=== PATIENT | male | born 1955 | race Caucasian/White ===

== ENCOUNTER 2018-07-22 17:45 | Inpatient (IN) | payer MEDICAID ==
[~2018-07-22] VITALS: Ht 182.9 cm; Wt 64.6 kg
--- NOTE | 2018-07-22 18:07 | NUR ---
PT INITIALLY CAME IN ON RA SATS 89-90 %. PLACED ON 2 L PNC AND IMMED IMPROVED TO 95 %
[2018-07-22 18:08] VITALS: BP 101/59
[2018-07-22 19:17] VITALS: BP 101/59
--- NOTE | 2018-07-22 19:47 | NUR ---
CONSENT FORMS SIGNED, PATIENT SIGNED THE FORMS WITH AN "X"
[2018-07-22 22:40] VITALS: BP 114/71
[2018-07-22 23:00] VITALS: BP 109/76
[2018-07-22 23:03] VITALS: BP 127/83; BMI 16.9
[2018-07-22 23:30] VITALS: BP 108/60
[2018-07-22 23:39] LABS: BASOPHILS 0 % (0-2); EOSINOPHILS 0.6 % (0-7); HEMATOCRIT 36.6 % (42.0-54.0); HEMOGLOBIN 12.5 g/dL (13.5-17.5); LYMPHOCYTES 11.2 % (15-50); MCH 30.2 pg (26.0-34.0); MCHC 34.2 g/dL (31.0-37.0); MCV 88.4 fL (80.0-100.0); MEAN PLATELET VOLUME 9.1 fL (7.4-10.4); MONOCYTES 4.3 % (2-11); NEUTROPHILS 82.9 % (40-80); PLATELET COUNT 211 10x3/uL (130-400); RBC 4.14 10x6/uL (4.20-6.10); RDW 15.7 % (11.5-14.5); WBC 8.7 10x3/uL (4.8-10.8)
[2018-07-23] VITALS (36 sets, daily range): BP systolic 68–122; BP diastolic 49–80; Ht 182.9 cm; Wt 64.6 kg
--- NOTE | 2018-07-23 00:32 | NUR ---
PT RECEIVED TO UNIT FOR SURGERY ON ICU BED FROM SURGERY WITH SURGERY STAFF. PT AWAKE WITH CONFUSION NOTED. PLACED ON MONITORS AND VSS. PADS CHANGED DUE TO BLEEDING. BLEEDING NOTED TO DRESSING TO SCROTUM. PT WITH BRIEF ON FOR SUPPORT PT ASSESSMENT COMPLETED, PT CONFUSED AND FALLING ASLEEP AND UNABLE TO OBTAIN HISTORY AT THIS TIME. MEDICATIONS GIVEN PER ORDERS. BRIAR CUTTER SETUP. WILL CONTINUE TO OBSERVE.
--- NOTE | 2018-07-23 02:23 | NUR ---
DRESSING TO SCROTOM REINFORCED DUE TO SATURATION. PT TOLERATED REPOSITIONING. VSS, PT RESTING WITH EYES CLOSED. NO S/S OF DISTRESS. WILL CONTINUE TO OBSERVE.
[2018-07-23 03:16] LABS: HEMATOCRIT 31.8 % (42.0-54.0); HEMOGLOBIN 10.9 g/dL (13.5-17.5); MCH 30.1 pg (26.0-34.0); MCHC 34.3 g/dL (31.0-37.0); MCV 87.8 fL (80.0-100.0); MEAN PLATELET VOLUME 9.3 fL (7.4-10.4); PLATELET COUNT 210 10x3/uL (130-400); RBC 3.62 10x6/uL (4.20-6.10); RDW 15.8 % (11.5-14.5); WBC 10.4 10x3/uL (4.8-10.8)
[2018-07-23 03:32] LABS: ALBUMIN 1.7 g/dL (3.4-5.0); ALKALINE PHOSPHATASE 58 U/L (46-116); BILIRUBIN - TOTAL 0.42 mg/dL (0.2-1.3); CALC OSMOLALITY 276 mosm/kg (275-300); CALCIUM 7.4 mg/dL (8.5-10.1); CARBON DIOXIDE 25.4 mmol/L (21.0-32.0); CHLORIDE - SERUM 107 mmol/L (98-107); CREATININE - SERUM 0.4 mg/dL (0.6-1.3); GLUCOSE 92 mg/dL (74-106); MAGNESIUM - SERUM 1.7 mg/dL (1.8-2.4); PHOSPHOROUS 3.8 mg/dL (2.5-4.9); POTASSIUM - SERUM 4.3 mmol/L (3.5-5.1); PROTEIN - SERUM 5.6 g/dL (6.4-8.2); SODIUM 139 mmol/L (136-145); UREA NITROGEN 10 mg/dL (7-18); eGFR NON AFRICAN AMERICAN > 90 mL/min (90-120)
[2018-07-23 03:33] LABS: ALT (SGPT) 4 U/L (10-68); TROPONIN-I < 0.017 ng/mL (0.000-0.060)
[2018-07-23 03:55] LABS: BASOPHILS 1 % (0-2); LYMPHOCYTES 3 % (15-50); MONOCYTES 4 % (2-11); NEUTROPHILS 87 % (40-80); PLATELET ESTIMATE NORMAL
--- NOTE | 2018-07-23 05:20 | NUR ---
PT WITH EYES CLOSED AND CHEST RISING. NO S/S OF DISTRESS. VSS. WILL CONTINUE TO OBSERVE.
--- NOTE | 2018-07-23 06:55 | NUR ---
DR RILEY CALLED TO REPORT DECREASING B/P. WILL REPORT.
--- NOTE | 2018-07-23 08:02 | OP ---
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 PROCEDURES: Debridement of gangrenous tissue including scrotectomy, right orchiectomy with removal of the right spermatic cord, placement of the left testicle in the thigh pocket, incision and drainage of right ischiorectal fossa abscess. FINDINGS: Completely necrotic scrotal skin with necrotic right testicle exposed. Pus seen along the right spermatic cord up to the external inguinal ring. Necrosis encompasses the median rhaphe of the scrotum. Necrosis tracts continuously down to the right ischiorectal fossa where there was necrotic fat and pus. SPECIMENS: Tissue containing the scrotal skin, right testicle and cord, ischiorectal fossa fat. BLOOD LOSS: Difficult to estimate. CLINICAL HISTORY: This is a 62-year-old male with severe rheumatoid arthritis. He has had this problem since 2008. He is on multiple immunosuppressive medications. At least 5 days ago, he started having a lot of pain in the scrotal area. He did not seek medical attention until today when he went to his family physician. The family physician found necrotic tissue in the scrotum and the patient was immediately referred to the local Emergency Room which is in [place]. [place] has transferred him here for management of Rachel's gangrene of the scrotum. On examining the scrotum, there is a black moist weepy area which we thought was scrotal skin. The patient is aware that since the erythema and crepitation tracks up along the right inguinal canal that he may lose the right testicle. Also, his CT done in [place] shows pus in the ischiorectal fossa on the right side. We are going to proceed with extensive debridement with evolved necrotic tissue. He was given vancomycin in [place]. We gave him meropenem in the Emergency Room here. In the OR, we gave him Flagyl 500 mg IV. DESCRIPTION OF PROCEDURE: The patient was given induction of general anesthesia. He was placed in the dorsal lithotomy position. He was then prepped and draped. We prepped the entire abdomen in case we had to do an exploratory laparotomy encasing Rachel's gangrene went into the pelvis. Also, the medial thighs were all prepped. A Hdez catheter was placed into the bladder and the balloon was inflated with 10 cc of sterile water and this was put to bag drainage. We started with excision of the scrotal skin around the necrotic area. We discovered that the scrotal skin have largely disappeared already. What we were excising was just the margin of a large central defect. What was exposed is weepy black tissue was actually the right testicle. By putting an Allis on the testicle and following the cord, we exposed pus along the canal. Wound culture swabs were obtained here. We incised the inguinal OPERATIVE REPORT [id number] CHRISTI JOY canal along the path of the cord. We traced the cord all the way up to the external inguinal ring. The cord here seemed viable. The cord was ligated using 2-0 Prolene tie and then cut distal to the tie. This was sent to pathology as part of the specimen. All necrotic skin along here was also removed. Any arterial and venous bleeding that significant was cauterized along the tissue edges. Going back into the scrotum, the left testicle was exposed and it was found to be completely viable and normal. The hemiscrotal tissue was necrotic and this was removed. Finally, going down into the ischiorectal fossa, we found that the whole infection site was contiguous with each other. The necrotic fat from the ischiorectal fossa was removed using the Bovie. Pus was found in this area. Culture swabs from the ischiorectal fossa were also obtained. Finally once we had completely debrided down to viable tissue, we irrigated the wound with saline peroxide solution. Kerlix infiltrated with normal saline was used for packing the wound. The patient will be brought to the intensive care unit for monitoring. Dr. Marrero plans to bring him back in 2 days' time for a second look exploration. TRANSINT:[id number] Voice Confirmation ID: [id number] DOCUMENT ID: [id number] VERÓNICA RILEY MD at 0802 CC: [id number] DICTATION DATE: 07/22/182204 PLANT ENGINEERING MANAGER: 07/23/18 0409 ADM IN [facility] [address] [facility], [facility]
--- NOTE | 2018-07-23 08:08 | NUR ---
PT UP IN BED AT THIS TIME AWAKE, SBP TRENDING IN 80S. NOTED UPON ASSESSMENT DRESSINGS SATURATED WITH BLOOD, SOME CLOTS NOTED. ALSO NOTED LINENS BENEATH PT SATURATED WITH BLOOD. PHYSICIAN PAGED AROUND 0700, H&H RECHECK ORDERED SINCE LAST CHECK WAS AT 0300. WILL PAGE PHYSICIAN AGAIN SHORTLY. PT DENIES ANY NEEDS. DENIES ANY NEEDS. HAS CHARGE COORDINATOR BUT HAS NOT BEEN USING IT. WILL CONTINUE TO CLOSELY OBSERVE.
[2018-07-23 08:26] LABS: HEMATOCRIT 26.6 % (42.0-54.0); HEMOGLOBIN 8.9 g/dL (13.5-17.5)
--- NOTE | 2018-07-23 08:43 | NUR ---
SPOKE WITH DR FLORES REGARDING H&H DROP TO 8.9/29.3 FROM 10.9/31.8. ORDERS RECIEVED FOR 2 U PRBC, 1 L NS, AND CONSULT DR MULLINS FOR CRITICAL CARE MANAGEMENT.
--- NOTE | 2018-07-23 09:20 | NUR ---
SBP TRENDING IN 70S NOW, SPOKE WITH DR MULLINS, HE STATED TO INCREASE NS TO 150ML/HR, GET LACTIC LEVEL, ABG, CHEST XRAY, AND EKG.
--- NOTE | 2018-07-23 10:15 | NUR ---
PICC LINE NURSE IN ROOM AT BEDSIDE PLACING PICC. NO ACUTE DISTRESS NOTED. WILL CONTINUE PLAN OF CARE.
--- NOTE | 2018-07-23 12:23 | NUR ---
LINENS NOTED SATURATED WITH BLOOD FROM INCISIONAL SITE. TOTAL LINEN CHANGE PROVIDED, DRESSINGS REINFORCED WITH ABD PADS AND 4X4S. BLOOD IS DARK RED WITH LOTS OF CLOTS. DR FLORES IS AWARE OF THIS AND DRESSINGS REINFORCED PER HIS ORDERS TO ONLY REINFORCE DRESSINGS FOR NOW. VSS. PT DENIES ANY DISCOMFORTS OR NEEDS. WILL CONTINUE PLAN OF CARE.
--- NOTE | 2018-07-23 14:15 | NUR ---
DR RILEY ROUNDED ON PT, STATED SINCE PT IS GOING BACK TO SURGERY TOMORROW, WOUND CARE CAN WAIT TO SEE PT UNTIL AFTER TOMORROWS PROCEDURE. PHYSICIAN ALSO CALLED DR FLORES AND UPDATED REGARDING BLEEDING FROM INCISIONAL SITES. NO NEW ORDERS NOTED. PT RECIEVING 2ND UNIT OF PRBC, WILL RECHECK H&H AFTER COMPLETION OF BLOOD ADMIN PER ORDERS. WILL CONTINUE PLAN OF CARE.
--- NOTE | 2018-07-23 15:06 | NUR ---
DR OTT HAS SEEN PT. ORDER RECIEVED TO PLACE PT ON CONTACT PRECAUTIONS FOR GANGRENE AND HISTORY OF CYSTS/BOILS.
--- NOTE | 2018-07-23 15:45 | NUR ---
PER SURGERY, PT TO GO BACK TO OR TOMORROW. PT STATUS UPDATE PROVIDED, LINENS SOILED WITH BLOOD FROM INCISIONAL SITE SHOWEN WELL. WILL CONTINUE PLAN OF CARE.
[2018-07-23 16:15] LABS: APTT 50.5 SECONDS (22.8-39.4); INR 3.87 (0.85-1.17); PROTIME 37.2 SECONDS (11.6-15.0)
--- NOTE | 2018-07-23 17:25 | NUR ---
LINENS COMPLETLY SATURATED WITH BLOOD AND CLOTS. TOTAL LINEN CHANGE PROVIDED, DRESSINGS REINFORCED PER ORDERS. DR FLORES NOTIFIED BY CHARGE NURSE, DR FLORES STATED HE WOULD CALL BACK IN A LITTLE BIT. PT DENIES ANY NEEDS. VSS. WILL CONTINUE PLAN OF CARE.
--- NOTE | 2018-07-23 19:05 | NUR ---
NOTED DOPPLER IS NEGATIVE TO LEGS, SCDS PLACED PER PHYSICIAN ORDERS.
[2018-07-23 19:17] LABS: BASOPHILS 0 % (0-2); EOSINOPHILS 0 % (0-7); IMMATURE GRANULOCYTES 0.8 % (0-5); LYMPHOCYTES 6.5 % (15-50); MCH 29.7 pg (26.0-34.0); MCHC 34.2 g/dL (31.0-37.0); MCV 86.9 fL (80.0-100.0); NEUTROPHILS 87.7 % (40-80); RDW 15.5 % (11.5-14.5)
[2018-07-23 19:26] LABS: HEMATOCRIT 19.3 % (42.0-54.0); HEMOGLOBIN 6.6 g/dL (13.5-17.5); PLATELET COUNT 134 10x3/uL (130-400); RBC 2.22 10x6/uL (4.20-6.10); WBC 7.4 10x3/uL (4.8-10.8)
--- NOTE | 2018-07-23 19:27 | NUR ---
H&H CRITICALLY LOW AT 6.6/19.3. DR FLORES PAGED FOR FURTHER ORDERS.
--- NOTE | 2018-07-23 19:33 | NUR ---
SPOKE WITH DR FLORES REGARDING CRITICALLY LOW H&H, ORDERS RECIEVED FOR 2 PRBC, 1 FFP, 1 PLATLET APHERESIS, 1 GRAM TXA, 1 AMP CALCIUM GLUCONATE, 15MG VITAMIN K SUBQ, THEN RECHECK CBC STAT POST TRANSFUSION AND CALL WITH RESULTS.
--- NOTE | 2018-07-23 19:35 | NUR ---
PT RECEIVED WITH EYES OPEN. ALERT. PLATLETS STARTED. BLEEDING NOTED TO PADDING. WILL CONTINUE TO OBSERVE.
--- NOTE | 2018-07-23 21:16 | NUR ---
CALCIUM GLUCONATE AND TXA ADMINISTERING. PLASMA COMPLETED AND 1ST UNIT OF PRBC INFUSING AFTER VERIFICATION WITH ANOTHER NURSE AND TUBING CHANGE. PT TOLERATING WELL. PT WITH PLEASANT DEMEANOR WITH SOME CONFUSION NOTED. WILL CONTINUE TO OBSERVE.
--- NOTE | 2018-07-23 22:09 | NUR ---
DR FLORES CALLED TO CHECK ON PT. REPORT GIVEN. STATED TO CALL IF HEMATOCRIT LESS THAN 28. WILL CONTINUE TO OBSERVE.
--- NOTE | 2018-07-23 23:44 | NUR ---
2ND UNIT PRBC STARTED AFTER VERIFICATION WITH ANOTHER NURSE. PT TOLERATED WELL. JADEN CONTINUE TO OBSERVE. REASSESSMENT COMPLETED, SEE FLOW SHEET.
[2018-07-24] VITALS (69 sets, daily range): BP systolic 66–136; BP diastolic 25–82
--- NOTE | 2018-07-24 01:44 | NUR ---
PRBC COMPLETED. LINENS CHANGED DUE TO BLEEDING FROM SCROTUM/SURGERY SITE. DRESSING REINFORCED WITH GAUZE. WILL CONTINUE TO OBSERVE.
--- NOTE | 2018-07-24 03:16 | NUR ---
PT IN BED WITH EYES OPEN WATCHING TV. REASSESSMENT COMPLETED. SEE FLOW SHEET. WILL CONTINUE TO OBSERVE.
[2018-07-24 03:49] LABS: BASOPHILS 0 % (0-2); EOSINOPHILS 0 % (0-7); IMMATURE GRANULOCYTES 1.2 % (0-5); LYMPHOCYTES 8.9 % (15-50); MCH 29.2 pg (26.0-34.0); MCHC 34.6 g/dL (31.0-37.0); MEAN PLATELET VOLUME 9.6 fL (7.4-10.4); MONOCYTES 5.6 % (2-11); NEUTROPHILS 84.3 % (40-80); RDW 14.8 % (11.5-14.5); WBC 8.5 10x3/uL (4.8-10.8)
[2018-07-24 03:52] LABS: MCV 84.3 fL (80.0-100.0); PLATELET COUNT 175 10x3/uL (130-400)
[2018-07-24 03:53] LABS: HEMATOCRIT 15.6 % (42.0-54.0); HEMOGLOBIN 5.4 g/dL (13.5-17.5); RBC 1.85 10x6/uL (4.20-6.10)
--- NOTE | 2018-07-24 04:38 | NUR ---
DR FLORES PAGED AND RETURNED CALL. REPORTED H&H 5.4/15.6 RBC 1.85. ORDERS RECEIVED FOR 4 UNITS OF PRBC, 2 UNITS FFP, 2 UNITS OF PLATELETS. ADIMINISTRATION HAS BEGUN PT TOLERATING WELL. WILL CONTINUE TO OBSERVE.
[2018-07-24 05:12] LABS: ALBUMIN 1.3 g/dL (3.4-5.0); ALKALINE PHOSPHATASE 33 U/L (46-116); BILIRUBIN - TOTAL 0.32 mg/dL (0.2-1.3); CARBON DIOXIDE 26.1 mmol/L (21.0-32.0); CHLORIDE - SERUM 110 mmol/L (98-107); CREATININE - SERUM 0.4 mg/dL (0.6-1.3); MAGNESIUM - SERUM 1.7 mg/dL (1.8-2.4); SODIUM 138 mmol/L (136-145); eGFR NON AFRICAN AMERICAN > 90 mL/min (90-120)
[2018-07-24 05:16] LABS: ALT (SGPT) 13 U/L (10-68); CALC OSMOLALITY 279 mosm/kg (275-300); GLUCOSE 147 mg/dL (74-106); PHOSPHOROUS 1.9 mg/dL (2.5-4.9); PROTEIN - SERUM 3.4 g/dL (6.4-8.2); UREA NITROGEN 14 mg/dL (7-18)
--- NOTE | 2018-07-24 05:32 | NUR ---
PT RECEIVED UNITS 1&2 PRBC. TOLERATING WELL. WILL CONTINUE TO OBSERVE
[2018-07-24 06:52] LABS: APTT 39.9 SECONDS (22.8-39.4); INR 1.83 (0.85-1.17); PROTIME 20.5 SECONDS (11.6-15.0)
--- NOTE | 2018-07-24 07:00 | NUR ---
SHIFT ASSESSMENT COMPLETED, PT CARE ASSUMED. MONITORS ON AND WORKING, DRESSING AND BEDDING SATURATED IN BLOOD DESPITE RECENT LINEN CHANGE AND BANDAGE REINFORCED FROM RECENT SURGICAL PROCEDURE, MD AWARE PT SCHEDULED TO GO BACK TO OR THIS AM, PT AWAKE AND ALERT, CALL LIGHT WITHIN REACH, WILL CONTINUE TO OBSERVE.
--- NOTE | 2018-07-24 07:23 | NUR ---
4TH UNIT PRBC INFUSING. 2 UNITS OF FFP GIVEN. REPORT GIVEN.
--- NOTE | 2018-07-24 10:23 | NUR ---
REC'D PT BACK FROM OR. PT HOOKED UP TO MONITORS, DRESSING CDI, PT AWAKE AND RESPONDING, WILL CONTINUE TO OBSERVE.
--- NOTE | 2018-07-24 10:31 | OP ---
PATIENT NAME: CHRISTI JOY MEDICAL RECORD: [id number] :59 LOCATION:.[facility] D.2310 ADMISSION DATE:07/22/18 SURGEON: VERÓNICA FLORES MD DATE OF OPERATION: 07/22/2018 This patient was transferred from [place]. PREOPERATIVE DIAGNOSIS: Rachel's gangrene. POSTOPERATIVE DIAGNOSES: Rachel's gangrene with nonviable right testicle and gangrene involving essentially the entire scrotum as well as the right ischiorectal fossa. This is a cosurgeon case Dr. Verónica Flores and Dr. Verónica Riley. Dr. Verónica Riley is the urologist, I am the general surgeon. PROCEDURE IN DETAIL: Please see the detailed description of procedure in Dr. Riley's operative note. Due to the complexity of the procedure, it was necessary to have 2 attending surgeons to perform the procedure. The patient was conveyed to the operating room emergently on 07/22/2018. As soon as were told the patient had a Rachel's gangrene, we mobilized the operative crew and had him conveyed to the operating room. After sterile prep and drape, I examined the scrotum and the right testicle and cord structures were gangrenous. We ligated the cord structures highly and then transected them distal to this. The scrotum was excised back to bleeding viable tissue. The ischiorectal fossa was found to contain a good bit of purulence as well as necrotic adipose tissue, etc. and this was excised in a piecemeal fashion. The penis appeared to be viable. The left testicle was placed in a bi-pocket, which was fashioned by Dr. Riley. Cultures were obtained. We did not demonstrate any definite intraabdominal spread of the gangrene. It appeared to cause some separation of tissues between the bladder and the anterior pelvis. I did not really notice any purulence in this area; however. The excision was a piecemeal excision, it was quite extensive. It was difficult to measure the excised defect; however, my best estimate is that the anterior-posterior dimension is 20.5 cm and the medial-lateral dimension is 17.3 cm, however, of course this changes if the patient has has thighs abducted or not. The wound was irrigated with hydrogen peroxide. Hemostasis was achieved with electrocautery. This was a sharp debridement back to viable bleeding tissue. We then packed the wound with Kerlix that had been soaked in saline. We will plan for a second look procedure probably in about 48 hours. TRANSINT:[id number] Voice Confirmation ID: [id number] DOCUMENT ID: [id number] VERÓNICA FLORES MD at 1031 CC: JEFFY PINEDA and VERÓNICA RILEY MD [id number] DICTATION DATE: 07/22/182215 COOLER SUPERVISOR: 07/23/18 0638 ADM IN [facility] [address] [place] [id number]
--- NOTE | 2018-07-24 11:00 | NUR ---
PT TURNED AND REPOSITIONED FOR COMFORT, NO BLEEDING NOTED. CALL LIGHT WITHIN REACH, MONITORS ON AND WORKING, WILL CONTINUE TO OBSERVE.
[2018-07-24 11:47] LABS: HEMATOCRIT 24.3 % (42.0-54.0); HEMOGLOBIN 8.4 g/dL (13.5-17.5)
--- NOTE | 2018-07-24 13:00 | NUR ---
PT AWAKE AND ALERT, MONITORS ON AND WORKING CALL LIGHT WITHIN REACH, WILL CONTINUE TO OBSERVE.
--- NOTE | 2018-07-24 15:00 | NUR ---
PT BP IMPROVING ALONG WITH SKIN COLOR, NO SIGNS/SYMPTOMS OF PAIN OR DISTRESS NOTED AT THIS TIME, PT AWAKE AND ALERT. MONITORS ON AND WORKING, VITALS STABLE, SEE FLOW SHEET FOR FURTHER DETAILS, WILL CONTINUE TO OBSERVE.
--- NOTE | 2018-07-24 16:06 | OP ---
PATIENT NAME: CHRISTI JOY MEDICAL RECORD: [id number] :59 LOCATION:D.[facility] D.2310 ADMISSION DATE:07/22/18 SURGEON: ISMAEL FLORES MD DATE OF OPERATION: 07/24/2018 PREOPERATIVE DIAGNOSES: 1. Hemorrhagic shock. 2. Blood loss anemia requiring transfusions. 3. Rachel's gangrene. POSTOPERATIVE DIAGNOSES: 1. Hemorrhagic shock. 2. Blood loss anemia requiring transfusions. 3. Rachel's gangrene. 4. One arterial bleeding area as well as diffuse oozing from the debrided bed. 5. Some additional necrotic tissue was identified. PROCEDURE: 1. Excisional debridement of perineum. The anterior and posterior dimension was 21.0 cm. The medial and lateral dimension was 10.0 cm, although this is difficult to characterize and depends on the positioning of the patient. This was a sharp debridement back to healthy viable tissue. 2. Control of arterial hemorrhage. SURGEON: Ismael Flores MD MEDICAL CODING TECHNICIAN: None. BLOOD LOSS: New blood loss is 100 cc. ANESTHESIA: General. COMPLICATIONS: None. The risks, possible complications and alternatives to the procedure were explained to the patient. He elects to proceed. Discussion specifically included, but was not limited to, the possible need for an exploratory laparotomy and possible need for a penectomy, the possible need for a left orchiectomy. OPERATIVE COURSE: The patient was conveyed the operating room electively on 07/24/2018. General anesthesia was induced by the anesthesia staff. The patient was placed in the lithotomy position. The lower abdomen and perineum were sterilely prepped. The left testicle had pretty much fallen out of the thigh pocket. I took some of the left thigh skin and sutured to the medial aspect of the debrided penis with 3-0 Vicryls, covering the testicle completely. Testicle continued to appear to be viable. I then performed excisional debridement. The debrided tissues included necrotic fat and necrotic fascia, a portion of the outer tissue covering the penis as well as a left groin. The debridement was carried out with a scalpel as well as with the Harmonic scalpel. Bleeding was controlled with a horizontal mattress 3-0 Vicryl and this was bleeding from the left buttock skin margin. I then controlled some additional bleeding utilizing the handheld argon plasma resource recovery specialist. OPERATIVE REPORT [id number] CHRISTI JOY A sterile dressing was applied. The patient was then extubated and conveyed to the post-anesthesia care unit. TRANSINT:[id number] Voice Confirmation ID: [id number] DOCUMENT ID: [id number] ISMAEL FLORES MD at 1606 CC: [id number] DICTATION DATE: 07/24/18 1026 HAND FUR CLEANER: 07/24/18 1247 ADM IN [place] [id number] [place] [id number]
--- NOTE | 2018-07-24 17:00 | NUR ---
PT SITTING UP IN BED EATING DINNER, OFF OF LEVOPHED, NO BLEEDING NOTED, HR AND BP STABLE. CALL LIGHT WITHIN REACH, WILL CONTINUE TO OBSERVE.
--- NOTE | 2018-07-24 19:00 | NUR ---
REPORT RECEIVED, CARE ASSUMED. PT IS SITTING IN BED WITH EYES OPEN AT THIS TIME. INITIAL ASSESSMENT COMPLETED, SEE FLOWSHEET FOR DETAILS. PT VOICES NO NEEDS AT THIS TIME. PT CONTINUES TO MAINTAIN BP AND HR. NO BLEEDING NOTED AT THIS TIME. WILL CONTINUE TO MONITOR.
--- NOTE | 2018-07-24 19:00 | MORECARE ---
CASE MANAGEMENT DISCHARGE SUMMARY PATIENT: CHRISTI JOY UNIT: [id number] ADM DATE: 07/22/18 AGE: 62 : 59 SEX: M ROOM/BED: D.2310 AUTHOR: OKSANA HI PHYSICIAN: REFERRING PHYSICIAN: ROSHNI PINEDA MD DATE OF SERVICE: 07/24/18 Discharge Plan Patient Name: CHRISTI JOY Facility: [facility]:[place] : 1955 Planned Disposition: Anticipated Discharge Date: Discharge Date: Expected LOS: Initial Reviewer: [email or web address] Initial Review Date: 07/22/2018 Generated: 07/24/18 7:59 pm Patient Name: CHRISTI JOY Page [id number] at 1900 All edits/amendments must be made on the electronic document DICTATION DATE: 07/24/181858 FLIGHT MECHANIC: MELISSA 07/24/181858 RPT#: [id number] DC DATE: STATUS: ADM IN [facility] [address] [place] [address] END OF REPORT
--- NOTE | 2018-07-24 19:06 | MORECARE ---
CASE MANAGEMENT DISCHARGE SUMMARY PATIENT: CHRISTI JOY UNIT: [id number] ADM DATE: 07/22/18 AGE: 62 : 59 SEX: M ROOM/BED: D.2310 AUTHOR: OKSANA HI PHYSICIAN: REFERRING PHYSICIAN: ROSHNI PINEDA MD DATE OF SERVICE: 07/24/18 Discharge Plan Patient Name: CHRISTI JOY [facility] : 1955 Planned Disposition: Anticipated Discharge Date: Discharge Date: Expected LOS: Initial Reviewer: [email or web address] Initial Review Date: 07/22/2018 Generated: 07/24/18 8:06 pm DCPIA - Discharge Planning Initial Assessment Updated by [email or web address]: Denise Saldivar on 07/24/18 7:01 pm * Is the patient Alert and Oriented? Yes * How many steps to enter\exit or inside your home? * PCP DR. Sapna YUAN * Pharmacy [facility] * Preadmission Environment Home Alone * ADLs Independent * Equipment None * List name and contact numbers for known caregivers / representatives who currently or will assist patient after discharge: HAS NO ONE PER PT * Verbal permission to speak to the caregivers and representatives has been obtained from the patient. N/A * Community resources currently utilized None * Additional services required to return to the preadmission environment? No * Can the patient safely return to the preadmission environment? Yes * Has this patient been hospitalized within the prior 30 days at any hospital? No Last DP export: 07/24/18 6:00 p Patient Name: CHRISTI JOY Page 92310 at 1906 All edits/amendments must be made on the electronic document DICTATION DATE: 07/24/181905 POWDER BLENDER AND POURER: MELISSA 07/24/181905 RPT#: [id number] DC DATE: STATUS: ADM IN [facility] [address] [place] [address] END OF REPORT
--- NOTE | 2018-07-24 19:19 | MORECARE ---
CASE MANAGEMENT DISCHARGE SUMMARY PATIENT: CHRISTI JOY UNIT: [id number] ADM DATE: 07/22/18 AGE: 62 : 59 SEX: M ROOM/BED: D.2310 AUTHOR: KOLTON,DOC PHYSICIAN: REFERRING PHYSICIAN: ROSHNI PINEDA MD DATE OF SERVICE: 07/24/18 Discharge Plan Patient Name: CHRISTI JOY Facility: [facility]:[place] : 1955 Planned Disposition: Anticipated Discharge Date: Discharge Date: Expected LOS: Initial Reviewer: [email or web address] Initial Review Date: 07/22/2018 Generated: 07/24/18 8:19 pm Comments DCP- Discharge Planning Updated by [email or web address]: Denise Saldivar on 07/24/18 6:[address] Patient Name: CHRISTI JOY Admission Status: ER Accout number: [id number] Admission Date: 07-22-2018 : 1955 Admission Diagnosis: Attending: JEFFY PINEDA Current LOS: 2 Anticipated DC Date: Planned Disposition: Primary Insurance: MEDICAID [place] PENDING CM met with patient at bedside about discharge planning /needs. Patient states he lives alone. Patient states he plans to discharge to his home. States he doesn't know how he is going to get home since his vehicle is at [facility]. He states he doesn't have anyone to help him. He states he has been trying for years to get his disability d/t his RA but hasn't received it and doesn't have any insurance. CM will contact [facility]. Patient states he doesn't have any medical equipment or home health services presently. States he feels his home environment is safe. Patient will most likely need HH when discharged for wound care. CM will continue to follow and assist as needed with discharge planning / needs. Discharge Planning Comments: Pairing Machine Operator: Denise Saldivar DCPIA - Discharge Planning Initial Assessment Updated by [email or web address]: Denise Saldivar on 07/24/18 7:01 pm * Is the patient Alert and Oriented? Yes * How many steps to enter\exit or inside your home? * PCP DR. Sapna YUAN * Pharmacy [facility] * Preadmission Environment Home Alone * ADLs Independent * Equipment None * List name and contact numbers for known caregivers / representatives who currently or will assist patient after discharge: HAS NO ONE PER PT * Verbal permission to speak to the caregivers and representatives has been obtained from the patient. N/A * Community resources currently utilized None * Additional services required to return to the preadmission environment? No * Can the patient safely return to the preadmission environment? Yes * Has this patient been hospitalized within the prior 30 days at any hospital? No Last DP export: 07/24/18 6:06 p Patient Name: CHRISTI JOY Page [phone] at 1919 All edits/amendments must be made on the electronic document DICTATION DATE: 07/24/181917 CHANNEL OPENER OUTSOLES: MELISSA 07/24/181917 RPT#: [id number] DC DATE: STATUS: ADM IN [facility] [address] [place] [address] END OF REPORT
--- NOTE | 2018-07-24 21:00 | NUR ---
PT IS RESTING IN BED WITH EYES CLOSED AT THIS TIME. PT'S GOWN, BLANKET AND LEADS WERE CHANGED. PT HELPED TO REPOSITION IN BED. NO SIGNS OF ACUTE DISTRESS NOTED AT THIS TIME. WILL CONTINUE TO MONITOR.
[2018-07-24 22:32] LABS: HEMATOCRIT 24.9 % (42.0-54.0); HEMOGLOBIN 8.8 g/dL (13.5-17.5)
--- NOTE | 2018-07-24 23:00 | NUR ---
REASSESSMENT COMPLETED, SEE FLOWSHEET FOR DETAILS. PT IS LAYING IN BED WITH EYES CLOSED. NO NEEDS VOICED. PT BP WAS LOW, LEVOPHED RESTARTED PER DRIP FLOWSHEET. NO SIGNS OF ACUTE DISTRESS NOTED AT THIS TIME. WILL CONTINUE TO MONITOR.
[2018-07-25] VITALS (54 sets, daily range): BP systolic 84–136; BP diastolic 52–99
--- NOTE | 2018-07-25 01:00 | NUR ---
PT IS RESTING IN BED WITH EYES CLOSED AT THIS TIME. NO SIGNS OF ACUTE DISTRESS. NO NEEDS VOICED AT THIS TIME. WILL CONTINUE TO MONITOR.
--- NOTE | 2018-07-25 03:00 | NUR ---
REASSESSMENT COMPLETED, SEE FLOWSHEET FOR DETAILS. PT IS RESTING IN BED WITH EYES CLOSED AT THIS TIME. NO SIGNS OF ACUTE DISTRESS NOTED. WILL CONTINUE TO MONITOR.
[2018-07-25] MEDS ORDERED: ENBREL25 MG/0.5 SQ (03:07)
[2018-07-25] MEDS ORDERED: ARAVA10 MG PO (03:08)
[2018-07-25] MEDS ORDERED: PREDNISONE5 MG PO (03:09)
[2018-07-25] MEDS ORDERED: AZULFIDINE500 MG PO (03:10)
[2018-07-25 03:44] LABS: BASOPHILS 0 % (0-2); EOSINOPHILS 0 % (0-7); HEMATOCRIT 25.1 % (42.0-54.0); HEMOGLOBIN 8.7 g/dL (13.5-17.5); LYMPHOCYTES 8.3 % (15-50); MCHC 34.7 g/dL (31.0-37.0); MCV 83.7 fL (80.0-100.0); MEAN PLATELET VOLUME 9.1 fL (7.4-10.4); MONOCYTES 4.8 % (2-11); NEUTROPHILS 85.9 % (40-80); PLATELET COUNT 201 10x3/uL (130-400); RDW 16.2 % (11.5-14.5); WBC 10.3 10x3/uL (4.8-10.8)
[2018-07-25 03:56] LABS: ALBUMIN 1.6 g/dL (3.4-5.0); ALKALINE PHOSPHATASE 40 U/L (46-116); APTT 30.2 SECONDS (22.8-39.4); BILIRUBIN - TOTAL 0.48 mg/dL (0.2-1.3); CARBON DIOXIDE 23.8 mmol/L (21.0-32.0); CHLORIDE - SERUM 110 mmol/L (98-107); CREATININE - SERUM 0.5 mg/dL (0.6-1.3); INR 1.24 (0.85-1.17); POTASSIUM - SERUM 3.9 mmol/L (3.5-5.1); PROTEIN - SERUM 3.9 g/dL (6.4-8.2); PROTIME 15.1 SECONDS (11.6-15.0); SODIUM 142 mmol/L (136-145); eGFR NON AFRICAN AMERICAN > 90 mL/min (90-120)
[2018-07-25 03:58] LABS: ALT (SGPT) 9 U/L (10-68); CALC OSMOLALITY 281 mosm/kg (275-300); CALCIUM 6.7 mg/dL (8.5-10.1); GLUCOSE 97 mg/dL (74-106); PHOSPHOROUS 1.3 mg/dL (2.5-4.9); UREA NITROGEN 10 mg/dL (7-18)
--- NOTE | 2018-07-25 05:00 | NUR ---
PT IS RESTING IN BED WITH EYES OPEN WATCHING TV AT THIS TIME. PT WAS GIVEN A COMPLETE CHG BATH AND LINEN CHANGE. PT HAD A CRITICAL CALCIUM OF 6.7, CORRECTED CALCIUM WAS 8.6. ELECTROLYTE PROTOCOL FOLLOWED FOR OTHER MORNING LAB VALUES. NO SIGNS OF ACUTE DISTRESS NOTED. WILL CONTINUE TO MONITOR.
--- NOTE | 2018-07-25 07:00 | NUR ---
SHIFT ASSESSMENT COMPLETED, PT CARE ASSUMED, MONITORS ON AND WORKING, VITALS STABLE, NO SIGNS/SYMPTOMS OF PAIN OR DISCOMFORT NOTED. PT AWAKE AND ALERT, SEE FLOW SHEET FOR FURTHER DETAILS, WILL CONTINUE TO OBSERVE.
--- NOTE | 2018-07-25 08:29 | NUR ---
Nutrition follow-up: Diet: Regular PO intake ~25-50% of meals Labs reviewed Wt: 142# +BM Levophed restarted Recommend starting ProcalAmine PPN @ 100 ml/hr along with po diet to provide pt with extra nutrition to aid with wound healing. RDN following.
--- NOTE | 2018-07-25 09:00 | NUR ---
PT SITTING UP IN BED, AWAKE AND ALERT, MONITORS ON AND WORKING, PT EATING BREAKFAST. NO SIGNS/SYMPTOMS OF PAIN OR DISCOMFORT NOTED AT THIS TIME. CALL LIGHT WITHIN REACH.
--- NOTE | 2018-07-25 11:00 | NUR ---
NO CHNAGES, SEE FLOW SHEET FOR FURTHER DETIALS. WILL CONTINUE TO OBSERVE.
--- NOTE | 2018-07-25 12:02 | MORECARE ---
CASE MANAGEMENT DISCHARGE SUMMARY PATIENT: CHRISTI JOY UNIT: [id number] ADM DATE: 07/22/18 AGE: 62 : 59 SEX: M ROOM/BED: D.2310 AUTHOR: KOLTON,DOC PHYSICIAN: REFERRING PHYSICIAN: ROSHNI PINEDA MD DATE OF SERVICE: 07/25/18 Discharge Plan Patient Name: CHRISTI JOY Facility: [facility]:[place] : 1955 Planned Disposition: Anticipated Discharge Date: Discharge Date: Expected LOS: Initial Reviewer: [email or web address] Initial Review Date: 07/22/2018 Generated: 07/25/18 1:02 pm Comments DCP- Discharge Planning Updated by [email or web address]: Denise Saldivar on 07/25/18 10:[address] SPOKE WITH [facility]G IN [place] -.HE HAS MEDICAID PENDING DCP- Discharge Planning Updated by [email or web address]: Denise Saldivar on 07/24/18 6:[address] Patient Name: CHRISTI JOY Admission Status: ER Accout number: [id number] Admission Date: 07-22-2018 : 1955 Admission Diagnosis: Attending: JEFFY PINEDA Current LOS: 2 Anticipated DC Date: Planned Disposition: Primary Insurance: MEDICAID [place] PENDING CM met with patient at bedside about discharge planning /needs. Patient states he lives alone. Patient states he plans to discharge to his home. States he doesn't know how he is going to get home since his vehicle is at [facility]. He states he doesn't have anyone to help him. He states he has been trying for years to get his disability d/t his RA but hasn't received it and doesn't have any insurance. CM will contact [employer]. Patient states he doesn't have any medical equipment or home health services presently. States he feels his home environment is safe. Patient will most likely need HH when discharged for wound care. CM will continue to follow and assist as needed with discharge planning / needs. Discharge Planning Comments: Housekeeping Coordinator: Denise Saldivar DCPIA - Discharge Planning Initial Assessment Updated by [email or web address]: Denise Saldivar on 07/24/18 7:01 pm * Is the patient Alert and Oriented? Yes * How many steps to enter\exit or inside your home? * PCP DR. Sapna YUAN * Pharmacy [facility] * Preadmission Environment Home Alone * ADLs Independent * Equipment None * List name and contact numbers for known caregivers / representatives who currently or will assist patient after discharge: HAS NO ONE PER PT * Verbal permission to speak to the caregivers and representatives has been obtained from the patient. N/A * Community resources currently utilized None * Additional services required to return to the preadmission environment? No * Can the patient safely return to the preadmission environment? Yes * Has this patient been hospitalized within the prior 30 days at any hospital? No Last DP export: 07/24/18 6:19 p Patient Name: CHRISTI JOY Page [id number] at 1202 All edits/amendments must be made on the electronic document DICTATION DATE: 07/25/181201 CUSTOMER SOLUTIONS ARCHITECT: MELISSA 07/25/18 1202 RPT#: [id number] DC DATE: STATUS: ADM IN [facility] [address] [place] [address] END OF REPORT
--- NOTE | 2018-07-25 13:00 | NUR ---
PT SITTING UP IN BED EATING LUNCH. MONITORS ON AND WORKING, VITALS STABLE. PT AWAKE AND ALERT, NO SIGNS/SYMPTOMS OF PAIN OR DISCOMFORT NOTED. WILL CONTINUE TO OSBERV.E
--- NOTE | 2018-07-25 15:00 | NUR ---
NO CHANGES, SEE FLOW SHEET FOR FURTHER DETIALS, MONITORS ON AND WORKING, CALL LIGHT WITHIN REACH, WILL CONTINUE TO OBSERVE.
--- NOTE | 2018-07-25 15:06 | NUR ---
Left plantar foot is dry and scaly with a healing wound that looks like a laceration. Pt states he gets cysts on his feet and on his buttocks that occasional rupture and this is what happened on his left foot. He says the cysts are related to his arthritis. There is no drainage, odor or redness noted. Recommend keeping clean, dry and open to air.
--- NOTE | 2018-07-25 19:30 | NUR ---
PT SITTING UP IN BED, NO SIGNS OF DISTRESS. PT CONFUSED TO PLACE, ASKING "WHAT KIND OF HOTEL IS THIS" EXPLAINED TO PT THIS WAS A HOSPITAL AND WHERE HE WAS AND WHY. PT AGITATED STATING WE ARE "BULLYING HIM" BECAUSE HE NEEDS TO GO GET HIS TRUCK FROM THE "HOTEL IN [place]." REDIRECTED PT. HE IS OFF AND ON PLEASANT AND THEN WILL GET AGITATED QUICKLY STATING HE NEEDS TO GO HOME TO HANDLE BILLS. IV RIGHT UPPER ARM INFUSING NS @ 50. DRESSING TO RIGHT GROIN AND SCROTUM AREA. DENIES PAIN. MCQUEEN DRAINING CLEAR YELLOW URINE. SAVANAH ON. SCDS ON. CL IN REACH, WILL CONT TO MONITOR
--- NOTE | 2018-07-25 22:00 | NUR ---
PT SAVANAH ALARMING, PT IN BATHROOM SITTING ON TOILET. STATED HE HAD TO HAVE BM. ASSISTED PT BACK TO BED WHEN DONE. PT ABLE TO WALK TO BED WITH MINIMAL ASSIST. GAIT SLIGHTLY UNSTEADY. DENIES PAIN. PT PULLED OFF DRESSING TO RIGHT GROIN WHILE IN BATHROOM. CHANGED DRESSING WET TO DRY. WITHOUT PAIN. SAVANAH ON. CL IN REACH, WILL CONT TO MONITOR
[2018-07-26] VITALS: BP 125/79
[2018-07-26 04:00] VITALS: BP 115/55
[2018-07-26 06:27] LABS: ALKALINE PHOSPHATASE 52 U/L (46-116); CALC OSMOLALITY 285 mosm/kg (275-300); CALCIUM 7.9 mg/dL (8.5-10.1); CARBON DIOXIDE 22.6 mmol/L (21.0-32.0); CHLORIDE - SERUM 113 mmol/L (98-107); CREATININE - SERUM 0.4 mg/dL (0.6-1.3); GLUCOSE 93 mg/dL (74-106); MAGNESIUM - SERUM 2.4 mg/dL (1.8-2.4); POTASSIUM - SERUM 3.8 mmol/L (3.5-5.1); PRO BNP 2058 pg/mL (0-125); SODIUM 144 mmol/L (136-145); UREA NITROGEN 10 mg/dL (7-18); eGFR NON AFRICAN AMERICAN > 90 mL/min (90-120)
[2018-07-26 06:28] LABS: ALBUMIN 2.9 g/dL (3.4-5.0); ALT (SGPT) 18 U/L (10-68); PHOSPHOROUS 1.9 mg/dL (2.5-4.9); PROTEIN - SERUM 5.2 g/dL (6.4-8.2)
[2018-07-26 08:00] LABS: BASOPHILS 0.1 % (0-2); EOSINOPHILS 0 % (0-7); HEMOGLOBIN 9.6 g/dL (13.5-17.5); IMMATURE GRANULOCYTES 5.5 % (0-5); MCH 29.4 pg (26.0-34.0); MCHC 34.3 g/dL (31.0-37.0); MEAN PLATELET VOLUME 9.1 fL (7.4-10.4); MONOCYTES 5.2 % (2-11); NEUTROPHILS 79.2 % (40-80); PLATELET COUNT 191 10x3/uL (130-400); RBC 3.26 10x6/uL (4.20-6.10); RDW 16.6 % (11.5-14.5); WBC 8.9 10x3/uL (4.8-10.8)
[2018-07-26 08:05] LABS: MCV 85.9 fL (80.0-100.0)
[2018-07-26 09:49] VITALS: BP 141/90
--- NOTE | 2018-07-26 14:15 | MORECARE ---
CASE MANAGEMENT DISCHARGE SUMMARY PATIENT: CHRISTI JOY UNIT: [id number] ADM DATE: 07/22/18 AGE: 62 : 59 SEX: M ROOM/BED: D.2234 AUTHOR: KOLTON,DOC PHYSICIAN: REFERRING PHYSICIAN: ROSHNI PINEAD MD DATE OF SERVICE: 07/26/18 Discharge Plan Patient Name: CHRISTI JOY Facility: [facility]:[place] : 1955 Planned Disposition: Anticipated Discharge Date: Discharge Date: Expected LOS: Initial Reviewer: [email or web address] Initial Review Date: 07/22/2018 Generated: 07/26/18 3:14 pm Comments DCP- Discharge Planning Updated by [email or web address]: Denise Saldivar on 07/25/18 10:[address] SPOKE WITH [facility] IN [employer] -.HE HAS MEDICAID PENDING DCP- Discharge Planning Updated by [email or web address]: Denise Saldivar on 07/24/18 6:[address] Patient Name: CHRISTI JOY Admission Status: ER Accout number: [id number] Admission Date: 07-22-2018 : 1955 Admission Diagnosis: Attending: JEFFY PINEDA Current LOS: 2 Anticipated DC Date: Planned Disposition: Primary Insurance: MEDICAID [place] PENDING CM met with patient at bedside about discharge planning /needs. Patient states he lives alone. Patient states he plans to discharge to his home. States he doesn't know how he is going to get home since his vehicle is at [facility]. He states he doesn't have anyone to help him. He states he has been trying for years to get his disability d/t his RA but hasn't received it and doesn't have any insurance. CM will contact [employer]. Patient states he doesn't have any medical equipment or home health services presently. States he feels his home environment is safe. Patient will most likely need HH when discharged for wound care. CM will continue to follow and assist as needed with discharge planning / needs. Discharge Planning Comments: Detail Sergeant: Denise Saldivar DCPIA - Discharge Planning Initial Assessment Updated by [email or web address]: Denise Saldivar on 07/24/18 7:01 pm * Is the patient Alert and Oriented? Yes * How many steps to enter\exit or inside your home? * PCP DR. Sapna YUAN * Pharmacy [facility] * Preadmission Environment Home Alone * ADLs Independent * Equipment None * List name and contact numbers for known caregivers / representatives who currently or will assist patient after discharge: HAS NO ONE PER PT * Verbal permission to speak to the caregivers and representatives has been obtained from the patient. N/A * Community resources currently utilized None * Additional services required to return to the preadmission environment? No * Can the patient safely return to the preadmission environment? Yes * Has this patient been hospitalized within the prior 30 days at any hospital? No External Providers [facility] Next Contact Date: Service Request Date: Service Type: Resolution: Reviewer: Comments: Coverage Notice Reviewer: [email or web address] Keena Sotomayor Notice Issued Date-Time: 07/26/2018 14:11 Notice Type: Patient Choice Letter Notice Delivered To: Patient Relationship to Patient: Self Archives Technician Name: Delivery Method: HAND - Hand Delivered Felipa Days: Prior Verbal Notification: Recipient Understood Notice: Yes Recipient Signature: Yes Med Rec Note Co-signed by Attending: Coverage Notice Comment: [facility] for [facility] [place] in [place] [facility] Last DP export: 07/25/18 11:02 a Patient Name: CHRISTI JOY Page [phone] at 1415 All edits/amendments must be made on the electronic document DICTATION DATE: 07/26/181413 CLOUD PHYSICIST: MELISSA 07/26/181413 RPT#: [id number] DC DATE: STATUS: ADM IN [facility] [address] [place] [address] END OF REPORT
--- NOTE | 2018-07-26 14:23 | MORECARE ---
CASE MANAGEMENT DISCHARGE SUMMARY PATIENT: CHRISTI JOY UNIT: [id number] ADM DATE: 07/22/18 AGE: 62 : 59 SEX: M ROOM/BED: D.2234 AUTHOR: KOLTON,DOC PHYSICIAN: REFERRING PHYSICIAN: ROSHNI PINEDA MD DATE OF SERVICE: 07/26/18 Discharge Plan Patient Name: CHRISTI JOY Facility: [facility]:[place] : 1955 Planned Disposition: Anticipated Discharge Date: Discharge Date: Expected LOS: Initial Reviewer: [email or web address] Initial Review Date: 07/22/2018 Generated: 07/26/18 3:23 pm Comments DCP- Discharge Planning Updated by [email or web address]: Jannet Sotomayor on 07/26/18 1:[address] Met with patient about [facility]HS, [facility]IR for [facility] in [facility]. I called and spoke to Jordyn, she states they can take Medicaid pending if he has seen his PCP recently. I informed her his PCP was Dr. Rios. He states he has seen him recently "when this all started." He will need transportation home as well. He may possibly need oxygen. I will have a walk test done 2 days prior to discharge. CM will continue to follow and assist with discharge planning/needs. DCP- Discharge Planning Updated by [id number]: Denise Saldivar on 07/25/18 10:[address] SPOKE WITH OLEG IN [employer] -.HE HAS MEDICAID PENDING DCP- Discharge Planning Updated by [email or web address]: Denise Saldivar on 07/24/18 6:[address] Patient Name: CHRISTI JOY Admission Status: ER Accout number: [id number] Admission Date: 07-22-2018 : 1955 Admission Diagnosis: Attending: JEFFY PINEDA Current LOS: 2 Anticipated DC Date: Planned Disposition: Primary Insurance: MEDICAID [place] PENDING CM met with patient at bedside about discharge planning /needs. Patient states he lives alone. Patient states he plans to discharge to his home. States he doesn't know how he is going to get home since his vehicle is at [facility]. He states he doesn't have anyone to help him. He states he has been trying for years to get his disability d/t his RA but hasn't received it and doesn't have any insurance. CM will contact [employer]. Patient states he doesn't have any medical equipment or home health services presently. States he feels his home environment is safe. Patient will most likely need HH when discharged for wound care. CM will continue to follow and assist as needed with discharge planning / needs. Discharge Planning Comments: Warehouse Operations Associate: Denise ANNE - Discharge Planning Initial Assessment Updated by [email or web address]: Denise Saldivar on 07/24/18 7:01 pm * Is the patient Alert and Oriented? Yes * How many steps to enter\\exit or inside your home? * PCP DR. Sapna RIOS * Pharmacy [facility] * Preadmission Environment Home Alone * ADLs Independent * Equipment None * List name and contact numbers for known caregivers / representatives who currently or will assist patient after discharge: HAS NO ONE PER PT * Verbal permission to speak to the caregivers and representatives has been obtained from the patient. N/A * Community resources currently utilized None * Additional services required to return to the preadmission environment? No * Can the patient safely return to the preadmission environment? Yes * Has this patient been hospitalized within the prior 30 days at any hospital? No Coverage Notice Reviewer: [id number] - Jannet Sotomayor Notice Issued Date-Time: 07/26/2018 14:11 Notice Type: Patient Choice Letter Notice Delivered To: Patient Relationship to Patient: Self Rod Finisher Name: Delivery Method: HAND - Hand Delivered Felipa Days: Prior Verbal Notification: Recipient Understood Notice: Yes Recipient Signature: Yes Med Rec Note Co-signed by Attending: Coverage Notice Comment: [facility] for [facility] in [facility] Last DP export: 07/26/18 1:14 p Patient Name: CHRISTI JOY Page 13113 at 1423 All edits/amendments must be made on the electronic document DICTATION DATE: 07/26/181422 RETAIL EQUIPMENT ASSOCIATE: MELISSA 07/26/181422 RPT#: [id number] DC DATE: STATUS: ADM IN [facility] [address] [place] [address] END OF REPORT
[2018-07-26 14:38] VITALS: BP 118/68
--- NOTE | 2018-07-26 17:08 | NUR ---
I have reviewed this patient and I concur with the Shift Assessment completed by the Licensed Practical Nurse today this shift.
[2018-07-26 18:02] VITALS: BP 117/69
[2018-07-26 19:53] VITALS: BP 155/90
[2018-07-27] VITALS: BP 129/72
--- NOTE | 2018-07-27 03:37 | NUR ---
I have reviewed this patient and I concur with the Shift Assessment completed by the Licensed Practical Nurse today this shift.
[2018-07-27 04:00] VITALS: BP 146/84
[2018-07-27 06:12] LABS: BASOPHILS 0.1 % (0-2); EOSINOPHILS 0.1 % (0-7); HEMATOCRIT 23.9 % (42.0-54.0); HEMOGLOBIN 8.1 g/dL (13.5-17.5); IMMATURE GRANULOCYTES 4.5 % (0-5); MCH 29.7 pg (26.0-34.0); MCHC 33.9 g/dL (31.0-37.0); MCV 87.5 fL (80.0-100.0); MEAN PLATELET VOLUME 8.9 fL (7.4-10.4); MONOCYTES 4.9 % (2-11); NEUTROPHILS 79.4 % (40-80); PLATELET COUNT 170 10x3/uL (130-400); RBC 2.73 10x6/uL (4.20-6.10); RDW 16.5 % (11.5-14.5); WBC 8.6 10x3/uL (4.8-10.8)
[2018-07-27 07:14] LABS: ALBUMIN 2.9 g/dL (3.4-5.0); ALKALINE PHOSPHATASE 41 U/L (46-116); BILIRUBIN - TOTAL 0.54 mg/dL (0.2-1.3); CALC OSMOLALITY 290 mosm/kg (275-300); CALCIUM 7.5 mg/dL (8.5-10.1); CHLORIDE - SERUM 113 mmol/L (98-107); CREATININE - SERUM 0.4 mg/dL (0.6-1.3); GLUCOSE 105 mg/dL (74-106); MAGNESIUM - SERUM 2.1 mg/dL (1.8-2.4); PHOSPHOROUS 2.2 mg/dL (2.5-4.9); POTASSIUM - SERUM 3.5 mmol/L (3.5-5.1); PROTEIN - SERUM 4.9 g/dL (6.4-8.2); SODIUM 147 mmol/L (136-145); UREA NITROGEN 9 mg/dL (7-18); eGFR NON AFRICAN AMERICAN > 90 mL/min (90-120)
[2018-07-27 07:17] LABS: ALT (SGPT) 11 U/L (10-68)
--- NOTE | 2018-07-27 09:00 | NUR ---
PT RESTING, REQESTING ICE WATER BROUGHT TO PT AT THIS TIME, NO OTHER NEEDS EXPRESSED NO SIGNS OF DISTRESS NOTED, CL IN REACH
[2018-07-27 09:34] VITALS: BP 114/68
[2018-07-27 13:09] VITALS: BP 143/89
[2018-07-27 16:26] VITALS: BP 140/88
[2018-07-27 19:52] VITALS: BP 142/80
[2018-07-28] VITALS: BP 145/85
--- NOTE | 2018-07-28 01:30 | NUR ---
I have reviewed this patient and I concur with the Shift Assessment completed by the Licensed Practical Nurse today this shift.
[2018-07-28 04:00] VITALS: BP 113/65
[2018-07-28 05:40] LABS: BASOPHILS 0.1 % (0-2); EOSINOPHILS 0.3 % (0-7); HEMATOCRIT 23.4 % (42.0-54.0); HEMOGLOBIN 7.8 g/dL (13.5-17.5); IMMATURE GRANULOCYTES 4.3 % (0-5); LYMPHOCYTES 12.9 % (15-50); MCH 29.4 pg (26.0-34.0); MCHC 33.3 g/dL (31.0-37.0); MCV 88.3 fL (80.0-100.0); MEAN PLATELET VOLUME 9.2 fL (7.4-10.4); MONOCYTES 4.8 % (2-11); NEUTROPHILS 77.6 % (40-80); PLATELET COUNT 153 10x3/uL (130-400); RBC 2.65 10x6/uL (4.20-6.10); RDW 16.1 % (11.5-14.5); WBC 6.9 10x3/uL (4.8-10.8)
[2018-07-28 06:42] LABS: ALBUMIN 2.6 g/dL (3.4-5.0); ALKALINE PHOSPHATASE 36 U/L (46-116); ALT (SGPT) 11 U/L (10-68); BILIRUBIN - TOTAL 0.46 mg/dL (0.2-1.3); CALC OSMOLALITY 289 mosm/kg (275-300); CALCIUM 7.3 mg/dL (8.5-10.1); CHLORIDE - SERUM 109 mmol/L (98-107); CREATININE - SERUM 0.5 mg/dL (0.6-1.3); GLUCOSE 94 mg/dL (74-106); PROTEIN - SERUM 4.5 g/dL (6.4-8.2); SODIUM 147 mmol/L (136-145); UREA NITROGEN 6 mg/dL (7-18); eGFR NON AFRICAN AMERICAN > 90 mL/min (90-120)
[2018-07-28 06:43] LABS: CARBON DIOXIDE 32.5 mmol/L (21.0-32.0); POTASSIUM - SERUM 2.9 mmol/L (3.5-5.1)
[2018-07-28 09:03] VITALS: BP 137/78
--- NOTE | 2018-07-28 09:20 | NUR ---
PT RESTING NO SIGNS OF DISTRESS NOTED CL IN REACH
[2018-07-28 12:40] VITALS: BP 153/86
--- NOTE | 2018-07-28 15:12 | NUR ---
I have reviewed this patient and I concur with the Shift Assessment completed by the Licensed Practical Nurse today this shift.
--- NOTE | 2018-07-28 17:00 | NUR ---
DRESSING CXHANGED AT THIS PER ORDER PT TOLARTAED W/O COMPLAINT
[2018-07-28 17:09] VITALS: BP 144/80
--- NOTE | 2018-07-28 18:30 | NUR ---
MCQUEEN DC WITH 800CC OUTPUT AT THIS TIME, TOLERATED W/O COMPLAINT
--- NOTE | 2018-07-28 19:11 | NUR ---
100CC OUTPUT FROM URINAL AT THIS TIME POST MCQUEEN BEING TAKEN OUT
[2018-07-28 20:00] VITALS: BP 132/77
--- NOTE | 2018-07-28 20:00 | NUR ---
LYING IN BED WATCHING TV. ALERT AND ORIENTED X4. DENIES PAIN. USING URINAL. SCDS IN USE BILAT. NS @ 50 MLHR INFUSING IN RT UPPER ARM PICC. KCL RIDER INFUSING AT THIS TIME VIA PICC. DRSG NOTED TO RT GROIN AND RT BUTTOCK IS C/D/I. SUTURES NOTED TO LT TESTICLE AND PENIS. REDNESS NOTED TO RT INNER THIGH. BILAT PLANTAR SURFACE OF FEET IS DRY , SCALY AND CRACK NOTED TO LT FOOT. RESP NONLABORED AT THIS TIME. O2 @ 6L/NC. VERY TALKATIVE. NO DISTRESS. SAVANAH ALARM IN USE. SR ELEVATED X2. CL IN REACH.
[2018-07-29] VITALS: BP 139/78
--- NOTE | 2018-07-29 01:44 | NUR ---
HAS BEEN AWAKE MOST OF NIGHT. NO DISTRESS. DENIES PAIN. USES URINAL. TALKATIVE. SR ELEVATED X2. SAVANAH ALARM ON. CL IN REACH.
[2018-07-29 03:00] VITALS: BP 106/64
[2018-07-29 04:51] LABS: BASOPHILS 0.1 % (0-2); EOSINOPHILS 0.1 % (0-7); HEMATOCRIT 25.5 % (42.0-54.0); HEMOGLOBIN 8.3 g/dL (13.5-17.5); IMMATURE GRANULOCYTES 4.7 % (0-5); LYMPHOCYTES 8.9 % (15-50); MCH 29.1 pg (26.0-34.0); MCHC 32.5 g/dL (31.0-37.0); MCV 89.5 fL (80.0-100.0); MEAN PLATELET VOLUME 9.9 fL (7.4-10.4); MONOCYTES 4.1 % (2-11); NEUTROPHILS 82.1 % (40-80); PLATELET COUNT 167 10x3/uL (130-400); RBC 2.85 10x6/uL (4.20-6.10); RDW 17.2 % (11.5-14.5); WBC 8.3 10x3/uL (4.8-10.8)
[2018-07-29 05:09] LABS: ALBUMIN 2.5 g/dL (3.4-5.0); ALKALINE PHOSPHATASE 39 U/L (46-116); ALT (SGPT) 11 U/L (10-68); BILIRUBIN - TOTAL 0.68 mg/dL (0.2-1.3); CALC OSMOLALITY 285 mosm/kg (275-300); CALCIUM 7.3 mg/dL (8.5-10.1); CHLORIDE - SERUM 107 mmol/L (98-107); CREATININE - SERUM 0.4 mg/dL (0.6-1.3); GLUCOSE 113 mg/dL (74-106); PROTEIN - SERUM 4.6 g/dL (6.4-8.2); SODIUM 144 mmol/L (136-145); UREA NITROGEN 7 mg/dL (7-18); eGFR NON AFRICAN AMERICAN > 90 mL/min (90-120)
[2018-07-29 05:10] LABS: POTASSIUM - SERUM 2.9 mmol/L (3.5-5.1)
[2018-07-29 08:46] VITALS: BP 143/82
[2018-07-29 12:30] VITALS: BP 117/67
--- NOTE | 2018-07-29 12:56 | NUR ---
PT RESTING IN BED. NO SIGNS OF DISTRESS. IV TO RIGHT UPPER ARM PICC PATENT NO REDNESS OR TENDERNESS. ON 6L NC. DENIES ANY PAIN OR NEED AT THIS TIME. HAS DRESSING TO RIGHT GROIN AND BUTTOCKS. BED LOW POSITION. CALL LIGHT IN REACH. NO FAMILY AT BEDSIDE AT THIS TIME.
--- NOTE | 2018-07-29 14:43 | NUR ---
I have reviewed this patient and I concur with the Shift Assessment completed by the Licensed Practical Nurse today this shift.
[2018-07-29 17:01] VITALS: BP 116/73
[2018-07-29 18:14] LABS: ANION GAP 9.2 mmol/L (8-16); CARBON DIOXIDE 30.7 mmol/L (21.0-32.0)
[2018-07-29 18:17] LABS: POTASSIUM - SERUM 2.9 mmol/L (3.5-5.1)
--- NOTE | 2018-07-29 20:30 | NUR ---
O2: 97% 8LO2 HIGH FLOW. PT SHOWING SIGNS OF SHORT OF BREATH AND DISTRESS. WILL MONITOR CLOSELY.
[2018-07-29 20:44] LABS: HEMATOCRIT 28.7 % (42.0-54.0); HEMOGLOBIN 9.3 g/dL (13.5-17.5); MCH 29.5 pg (26.0-34.0); MCHC 32.4 g/dL (31.0-37.0); MCV 91.1 fL (80.0-100.0); MEAN PLATELET VOLUME 10.4 fL (7.4-10.4); PLATELET COUNT 166 10x3/uL (130-400); RBC 3.15 10x6/uL (4.20-6.10); RDW 17.8 % (11.5-14.5)
[2018-07-29 20:45] LABS: WBC 10.7 10x3/uL (4.8-10.8)
[2018-07-29 21:15] LABS: LYMPHOCYTES 12 % (15-50); NEUTROPHILS 86 % (40-80); PLATELET ESTIMATE NORMAL
--- NOTE | 2018-07-29 21:22 | NUR ---
O2: 93% 8LO2 HIGH FLOW. PT RESTING AT THIS TIME.
[2018-07-29 21:31] VITALS: BP 113/74
[2018-07-29 21:39] LABS: ALBUMIN 2.7 g/dL (3.4-5.0); ALKALINE PHOSPHATASE 58 U/L (46-116); ALT (SGPT) 11 U/L (10-68); CALCIUM 7.6 mg/dL (8.5-10.1); CARBON DIOXIDE 31.3 mmol/L (21.0-32.0); CHLORIDE - SERUM 105 mmol/L (98-107); SODIUM 144 mmol/L (136-145)
[2018-07-29 21:44] LABS: CALC OSMOLALITY 289 mosm/kg (275-300); CREATININE - SERUM 0.6 mg/dL (0.6-1.3); GLUCOSE 169 mg/dL (74-106); UREA NITROGEN 9 mg/dL (7-18); eGFR NON AFRICAN AMERICAN > 90 mL/min (90-120)
--- NOTE | 2018-07-29 23:15 | NUR ---
ASSESSED RESP STATUS SPO2 96% FIO2 9L HFNC RR 18 UNLABORED EQUALATERAL EXCURSION ZERO CYANOSIS NO S/S RESP DISTRESS
[2018-07-30] VITALS (10 sets, daily range): BP systolic 97–120; BP diastolic 64–83
--- NOTE | 2018-07-30 01:30 | NUR ---
O2: 93% AT 9LO2 HIGH FLOW NASAL CANNULA. PT RESTING. NO SIGNS OF DISTRESS. BREATHING EVEN AND UNLABORED.
--- NOTE | 2018-07-30 03:13 | NUR ---
DRESSING CHANGED. PT TOLERATED WELL. 02: 98% 9LO2 HIGH FLOW NASAL CANNULA. WENT DOWN TO 8LO2 HIGH FLOW NASAL CANNULA.
--- NOTE | 2018-07-30 05:53 | NUR ---
I have reviewed this patient and I concur with the Shift Assessment completed by the Licensed Practical Nurse today this shift.
[2018-07-30 05:54] LABS: BASOPHILS 0.1 % (0-2); EOSINOPHILS 0.2 % (0-7); HEMATOCRIT 26.4 % (42.0-54.0); HEMOGLOBIN 8.5 g/dL (13.5-17.5); IMMATURE GRANULOCYTES 2.1 % (0-5); LYMPHOCYTES 10.4 % (15-50); MCH 29.2 pg (26.0-34.0); MCHC 32.2 g/dL (31.0-37.0); MCV 90.7 fL (80.0-100.0); MEAN PLATELET VOLUME 9.6 fL (7.4-10.4); MONOCYTES 6.1 % (2-11); NEUTROPHILS 81.1 % (40-80); PLATELET COUNT 135 10x3/uL (130-400); RBC 2.91 10x6/uL (4.20-6.10); RDW 17.9 % (11.5-14.5); WBC 8.2 10x3/uL (4.8-10.8)
--- NOTE | 2018-07-30 06:30 | NUR ---
O2: 99% ON 8LO2 HIGH FLOW. WENT DOWN TO 7LO2 HIGH FLOW WILL FALLOW UP. NO SIGNS OF DISTRESS. BREATHING EVEN AND UNLABORED.
[2018-07-30 06:36] LABS: ALBUMIN 2.5 g/dL (3.4-5.0); ALKALINE PHOSPHATASE 45 U/L (46-116); ALT (SGPT) 11 U/L (10-68); BILIRUBIN - TOTAL 0.61 mg/dL (0.2-1.3); CALC OSMOLALITY 286 mosm/kg (275-300); CALCIUM 7.7 mg/dL (8.5-10.1); CARBON DIOXIDE 34.4 mmol/L (21.0-32.0); CHLORIDE - SERUM 108 mmol/L (98-107); CREATININE - SERUM 0.5 mg/dL (0.6-1.3); MAGNESIUM - SERUM 1.8 mg/dL (1.8-2.4); PHOSPHOROUS 3.4 mg/dL (2.5-4.9); POTASSIUM - SERUM 3.4 mmol/L (3.5-5.1); PROTEIN - SERUM 4.7 g/dL (6.4-8.2); SODIUM 145 mmol/L (136-145); UREA NITROGEN 8 mg/dL (7-18); eGFR NON AFRICAN AMERICAN > 90 mL/min (90-120)
[2018-07-30 06:39] LABS: GLUCOSE 104 mg/dL (74-106)
[2018-07-30 10:49] LABS: APTT 27.5 SECONDS (22.8-39.4); INR 1.17 (0.85-1.17); PROTIME 14.8 SECONDS (11.6-15.0)
[2018-07-30 15:22] LABS: % SATURATION 20 % (15-55); IRON 32 ug/dl (35-150); TOTAL IRON BIND CAPACITY 153 ug/dl (260-445); UNSAT IRON BIND CAPACITY 121 ug/dl (150-375)
[2018-07-30 15:35] LABS: FERRITIN 134 ng/mL (3-244); LDH 343 U/L (85-227)
[2018-07-30 16:46] LABS: PROTEIN - BODY FLUID 0.8 G/DL
[2018-07-30 18:13] LABS: MACROPHAGES BF 83 %; MESOTHELIALS BF 4 %; NEUT - BF 6 %
[2018-07-31 01:20] VITALS: BP 121/86
--- NOTE | 2018-07-31 02:50 | NUR ---
I have reviewed this patient and I concur with the Shift Assessment completed by the Licensed Practical Nurse today this shift.
[2018-07-31 03:16] LABS: APPEARANCE CLEAR (CLEAR); BILIRUBIN NEGATIVE (NEGATIVE); COLOR DK YELLOW (YELLOW); GLUCOSE NEGATIVE (NEGATIVE); KETONE NEGATIVE (NEGATIVE); NITRITE NEGATIVE (NEGATIVE); PROTEIN NEGATIVE (NEGATIVE); UROBILINOGEN NORMAL (NORMAL)
[2018-07-31 04:47] VITALS: BP 107/78
[2018-07-31 05:00] LABS: BASOPHILS 0.1 % (0-2); EOSINOPHILS 0.2 % (0-7); HEMATOCRIT 27.3 % (42.0-54.0); HEMOGLOBIN 8.6 g/dL (13.5-17.5); IMMATURE GRANULOCYTES 0.8 % (0-5); LYMPHOCYTES 8.1 % (15-50); MCH 29.4 pg (26.0-34.0); MCHC 31.5 g/dL (31.0-37.0); MEAN PLATELET VOLUME 10.7 fL (7.4-10.4); MONOCYTES 6.3 % (2-11); NEUTROPHILS 84.5 % (40-80); PLATELET COUNT 142 10x3/uL (130-400); RBC 2.93 10x6/uL (4.20-6.10); RDW 18.3 % (11.5-14.5); WBC 9.4 10x3/uL (4.8-10.8)
[2018-07-31 05:05] LABS: MCV 93.2 fL (80.0-100.0)
[2018-07-31 05:08] LABS: CALC OSMOLALITY 285 mosm/kg (275-300); CALCIUM 7.7 mg/dL (8.5-10.1); CARBON DIOXIDE 33.7 mmol/L (21.0-32.0); CHLORIDE - SERUM 108 mmol/L (98-107); CREATININE - SERUM 0.5 mg/dL (0.6-1.3); GLUCOSE 129 mg/dL (74-106); MAGNESIUM - SERUM 1.8 mg/dL (1.8-2.4); SODIUM 143 mmol/L (136-145); UREA NITROGEN 9 mg/dL (7-18); eGFR NON AFRICAN AMERICAN > 90 mL/min (90-120)
[2018-07-31 05:16] LABS: POTASSIUM - SERUM 4.5 mmol/L (3.5-5.1)
[2018-07-31 08:36] VITALS: BP 115/80
--- NOTE | 2018-07-31 10:51 | NUR ---
CHANGED DRSG TO GROIN AREA. PACKED WET TO DRY. PT TOELRATED WELL. DENIES PAIN
--- NOTE | 2018-07-31 11:34 | NUR ---
PT LYING IN BED AAO X4 TO PERSON, PLACE, TIME, AND SITUATION. DENIES NEEDS AT THIS TIME. CL IN REACH. SIDE RAILS UP X3 FOR PT SAFETY. BED IN LOWEST POSITION.
[2018-07-31 12:12] LABS: FOLATE (FOLIC ACID) - SERUM 5.6 ng/mL (>3.0)
[2018-07-31 13:58] VITALS: BP 140/79
--- NOTE | 2018-07-31 14:43 | NUR ---
NUTRITION F/U PT TOLERATING REG DIET, 75 TO 100% INTAKE RECENT MEALS. WILL CONTINUE TO HONOR FOOD PREFERENCES, MONITOR PO INTAKE. RD FOLLOWING
--- NOTE | 2018-07-31 16:20 | MORECARE ---
CASE MANAGEMENT DISCHARGE SUMMARY PATIENT: CHRISTI JOY UNIT: [id number] ADM DATE: 07/22/18 AGE: 62 : 59 SEX: M ROOM/BED: D.2234 AUTHOR: KOLTONDOC PHYSICIAN: REFERRING PHYSICIAN: ROSHNI PINEDA MD DATE OF SERVICE: 07/31/18 Discharge Plan Patient Name: CHRISTI JOY Facility: [facility]:[place] : 1955 Planned Disposition: Anticipated Discharge Date: Discharge Date: Expected LOS: Initial Reviewer: [email or web address] Initial Review Date: 07/22/2018 Generated: 07/31/18 5:20 pm Comments DCP- Discharge Planning Updated by [id number]: Jannet Sotomayor on 07/31/18 3:[address] I spoke with Alma Delia with [facility] in [place]. Patient states he does not have a teachable director of managed care at home. He states he does not have a friend or relative that can assist with dressing changes. His nurse does not think that the patient is able to do his dressing change because of location. Alma Delia with [facility] states they cannot accept the patient. I called [facility] in [place] and spoke with Daria and she also states that they cannot do his dressing without a teachable director of managed care. He does have Medicaid approved per [facility] in [facility]. I spoke with the patient about going to inpatient rehab either here or at [place] and he refuses. He states he is going home. I informed him that I could not get a home health service to see him daily for his dressing changes. I called Dr. Rios's office and spoke to Samara (his nurse). She is going to see if they can assist with finding home health daily for this patient. CM will continue to follow and assist with discharge planning/needs. DCP- Discharge Planning Updated by [email or web address]: Jannet Sotomayor on 07/26/18 1:[address] Met with patient about [facility], SAMIR for [facility] in [place] signed. I called and spoke to Jordyn, she states they can take Medicaid pending if he has seen his PCP recently. I informed her his PCP was Dr. Rios. He states he has seen him recently "when this all started." He will need transportation home as well. He may possibly need oxygen. I will have a walk test done 2 days prior to discharge. CM will continue to follow and assist with discharge planning/needs. DCP- Discharge Planning Updated by [email or web address]: Denise Yariel on 07/25/18 10:[address] SPOKE WITH OLEG IN [place].HE HAS MEDICAID PENDING DCP- Discharge Planning Updated by [email or web address]: Denise Saldivar on 07/24/18 6:[address] Patient Name: CHRISTI JOY Admission Status: ER Accout number: [id number] Admission Date: 07-22-2018 : 1955 Admission Diagnosis: Attending: JEFFY PINEDA Current LOS: 2 Anticipated DC Date: Planned Disposition: Primary Insurance: [place]ICAID [place] PEND[place] CM met with patient at bedside about discharge planning /needs. Patient states he lives alone. Patient states he plans to discharge to his home. States he doesn't know how he is going to get home since his vehicle is at [facility]. He states he doesn't have anyone to help him. He states he has been trying for years to get his disability d/t his RA but hasn't received it and doesn't have any insurance. CM will contact [employer]. Patient states he doesn't have any medical equipment or home health services presently. States he feels his home environment is safe. Patient will most likely need HH when discharged for wound care. CM will continue to follow and assist as needed with discharge planning / needs. Discharge Planning Comments: Tablet Coater: Denise ANNE - Discharge Planning Initial Assessment Updated by [email or web address]: Denise Saldivar on 07/24/18 7:01 pm * Is the patient Alert and Oriented? Yes * How many steps to enter\\exit or inside your home? * PCP DR. Sapna RIOS * Pharmacy [facility] * Preadmission Environment Home Alone * ADLs Independent * Equipment None * List name and contact numbers for known caregivers / representatives who currently or will assist patient after discharge: HAS NO ONE PER PT * Verbal permission to speak to the caregivers and representatives has been obtained from the patient. N/A * Community resources currently utilized None * Additional services required to return to the preadmission environment? No * Can the patient safely return to the preadmission environment? Yes * Has this patient been hospitalized within the prior 30 days at any hospital? No Coverage Notice Reviewer: [email or web address] Keena Sotomayor Notice Issued Date-Time: 07/26/2018 14:11 Notice Type: Patient Choice Letter Notice Delivered To: Patient Relationship to Patient: Self Automotive Warranty Administrator Name: Delivery Method: HAND - Hand Delivered Felipa Days: Prior Verbal Notification: Recipient Understood Notice: Yes Recipient Signature: Yes Med Rec Note Co-signed by Attending: Coverage Notice Comment: [facility]IR for [facility] in [facility] Last DP export: 07/26/18 1:23 p Patient Name: CHRISTI JOY Page 16200 at 1620 All edits/amendments must be made on the electronic document DICTATION DATE: 07/31/18 162 MAINTENANCE INSTRUCTOR: MELISSA 07/31/18 1620 RPT#: [id number] DC DATE: STATUS: ADM IN [facility] [address] [place] [address] END OF REPORT
[2018-07-31 20:58] VITALS: BP 133/81
--- NOTE | 2018-08-01 00:31 | NUR ---
I have reviewed this patient and I concur with the Shift Assessment completed by the Licensed Practical Nurse today this shift.
[2018-08-01 01:35] VITALS: BP 113/82
--- NOTE | 2018-08-01 02:20 | NUR ---
PT RESTING IN BED. EYES CLOSED. NO SIGNS OF DISTRESS. BREATHING EVEN AND UNLABORED. WILL CONTINUE PLAN OF CARE. CALL LIGHT IN REACH. BED LOWERED AND LOCKED.
[2018-08-01 04:07] LABS: BASOPHILS 0 % (0-2); EOSINOPHILS 0.6 % (0-7); HEMOGLOBIN 8.5 g/dL (13.5-17.5); IMMATURE GRANULOCYTES 0.9 % (0-5); LYMPHOCYTES 15.2 % (15-50); MCH 29.6 pg (26.0-34.0); MCHC 31.5 g/dL (31.0-37.0); MCV 94.1 fL (80.0-100.0); MEAN PLATELET VOLUME 10.5 fL (7.4-10.4); MONOCYTES 9.4 % (2-11); NEUTROPHILS 73.9 % (40-80); PLATELET COUNT 143 10x3/uL (130-400); RBC 2.87 10x6/uL (4.20-6.10); RDW 18.2 % (11.5-14.5); WBC 8.5 10x3/uL (4.8-10.8)
[2018-08-01 04:25] LABS: CALC OSMOLALITY 286 mosm/kg (275-300); CALCIUM 8.1 mg/dL (8.5-10.1); CARBON DIOXIDE 35.2 mmol/L (21.0-32.0); CHLORIDE - SERUM 108 mmol/L (98-107); CREATININE - SERUM 0.4 mg/dL (0.6-1.3); GLUCOSE 92 mg/dL (74-106); POTASSIUM - SERUM 4.3 mmol/L (3.5-5.1); SODIUM 144 mmol/L (136-145); eGFR NON AFRICAN AMERICAN > 90 mL/min (90-120)
[2018-08-01 04:37] LABS: UREA NITROGEN 12 mg/dL (7-18)
[2018-08-01 05:25] VITALS: BP 111/82
--- NOTE | 2018-08-01 07:27 | NUR ---
PICC LINE DRESSING CHANGED. PT TOLERATED WELL.
[2018-08-01 08:42] VITALS: BP 118/74
--- NOTE | 2018-08-01 08:55 | MORECARE ---
CASE MANAGEMENT DISCHARGE SUMMARY PATIENT: CHRISTI JOY UNIT: [id number] ADM DATE: 07/22/18 AGE: 62 : 59 SEX: M ROOM/BED: D.2234 AUTHOR: KOLTONDOC PHYSICIAN: REFERRING PHYSICIAN: ROSHNI PINEDA MD DATE OF SERVICE: 08/01/18 Discharge Plan Patient Name: CHRISTI JOY Facility: [facility]:[place] : 1955 Planned Disposition: Anticipated Discharge Date: Discharge Date: Expected LOS: Initial Reviewer: [id number] Initial Review Date: 07/22/2018 Generated: 08/01/18 9:54 am Comments DCP- Discharge Planning Updated by [email or web address]: Jannet Sotomayor on 08/01/18 7:[address] Patient does not have benefits for LTACH. I have offered Inpatient rehab, he refuses, states he is "going home". CM will continue to follow and assist with discharge planning/needs. DCP- Discharge Planning Updated by [email or web address]: Jannet Sotomayor on 07/31/18 3:[address] I spoke with Alma Delia with [employer] [facility] in [place]. Patient states he does not have a teachable coronary care unit nurse at home. He states he does not have a friend or relative that can assist with dressing changes. His nurse does not think that the patient is able to do his dressing change because of location. Alma Delia with [employer] [facility] states they cannot accept the patient. I called [facility] in [place] and spoke with Daria and she also states that they cannot do his dressing without a teachable coronary care unit nurse. He does have Medicaid approved per [facility] in [facility]. I spoke with the patient about going to inpatient rehab either here or at [place] and he refuses. He states he is going home. I informed him that I could not get a home health service to see him daily for his dressing changes. I called Dr. Rios's office and spoke to Samara (his nurse). She is going to see if they can assist with finding home health daily for this patient. CM will continue to follow and assist with discharge planning/needs. DCP- Discharge Planning Updated by [id number]: Jannet Sotomayor on 07/26/18 1:[address] Met with patient about HHS, [facility] in [facility]. I called and spoke to Jordyn, she states they can take Medicaid pending if he has seen his PCP recently. I informed her his PCP was Dr. Rios. He states he has seen him recently "when this all started." He will need transportation home as well. He may possibly need oxygen. I will have a walk test done 2 days prior to discharge. CM will continue to follow and assist with discharge planning/needs. DCP- Discharge Planning Updated by [email or web address]: Denise Saldivar on 07/25/18 10:[address] SPOKE WITH [facility] IN [employer].HE HAS MEDICAID PENDING DCP- Discharge Planning Updated by [email or web address]: Denise Saldivar on 07/24/18 6:[address] Patient Name: CHRISTI JOY Admission Status: ER Accout number: [id number] Admission Date: 07-22-2018 : 1955 Admission Diagnosis: Attending: JEFFY PINEDA Current LOS: 2 Anticipated DC Date: Planned Disposition: Primary Insurance: MEDICAID [place] PENDING CM met with patient at bedside about discharge planning /needs. Patient states he lives alone. Patient states he plans to discharge to his home. States he doesn't know how he is going to get home since his vehicle is at [facility]. He states he doesn't have anyone to help him. He states he has been trying for years to get his disability d/t his RA but hasn't received it and doesn't have any insurance. CM will contact [employer] Patient states he doesn't have any medical equipment or home health services presently. States he feels his home environment is safe. Patient will most likely need HH when discharged for wound care. CM will continue to follow and assist as needed with discharge planning / needs. Discharge Planning Comments: Creative Manager: Denise Saldivar DCA - Discharge Planning Initial Assessment Updated by [email or web address]: Denise Saldivar on 07/24/18 7:01 pm * Is the patient Alert and Oriented? Yes * How many steps to enter\\exit or inside your home? * PCP DR. Sapna RIOS * Pharmacy [facility] * Preadmission Environment Home Alone * ADLs Independent * Equipment None * List name and contact numbers for known caregivers / representatives who currently or will assist patient after discharge: HAS NO ONE PER PT * Verbal permission to speak to the caregivers and representatives has been obtained from the patient. N/A * Community resources currently utilized None * Additional services required to return to the preadmission environment? No * Can the patient safely return to the preadmission environment? Yes * Has this patient been hospitalized within the prior 30 days at any hospital? No Coverage Notice Reviewer: [id number] Keena Sotomayor Notice Issued Date-Time: 07/26/2018 14:11 Notice Type: Patient Choice Letter Notice Delivered To: Patient Relationship to Patient: Self Patient Centered Care Specialist Name: Delivery Method: HAND - Hand Delivered Felipa Days: Prior Verbal Notification: Recipient Understood Notice: Yes Recipient Signature: Yes Med Rec Note Co-signed by Attending: Coverage Notice Comment: [facility] in [facility] Last DP export: 07/31/18 3:20 p Patient Name: CHRISTI JOY Page [phone] at 0855 All edits/amendments must be made on the electronic document DICTATION DATE: 08/01/1854 LEAD SOFTWARE DEVELOPMENT ENGINEER: MELISSA 08/01/18 0854 RPT#: [id number] DC DATE: STATUS: ADM IN [facility] [address] [place] [address] END OF REPORT
--- NOTE | 2018-08-01 09:48 | NUR ---
MORNING ASSESSMENT COMPLETE. SEE ASSESSMENT FLOWSHEET FOR FURHTER DETAILS. PT LYING IN BED AAO X4 TO PERSON, PLACE, TIME, AND SITUATION. DENIES NEEDS AT THIS TIME. CL IN REACH. SIDE RAILS UP X3 FOR PT SAEFTY. BED IN LOWEST POSITION.
[2018-08-01 13:07] VITALS: BP 123/78
[2018-08-01] MEDS ORDERED: SINGULAIR10 MG PO (14:41)
[2018-08-01] MEDS ORDERED: HYDROCODON-ACE1 EA10 PO (14:43)
[2018-08-01] MEDS ORDERED: MIRALAX17 GM PO (14:43)
[2018-08-01] MEDS ORDERED: ALBUTEROL SULF8.5 GM INH (14:44)
--- NOTE | 2018-08-01 15:08 | NUR ---
CHANGED DRSG TO GROIN AREA. PACKED WITH KERLIX IS STERILE WATER. COVERED IN DRY 4X4 AND ADB PAD. GREEN DRAINAGE NOTED. PT TOELRATED WELL.
--- NOTE | 2018-08-01 16:21 | NUR ---
OT NOTE: PT COMPLETED BED MOB WITH MIN A. PT COMPLETED SIT TO STAND WITH CGA. PT COMPLETED BUE AROM AXS. PT COMPLETED HYGIENE TASK WITH MIN A. THANK YOU, GREYSON ARAUJO
--- NOTE | 2018-08-01 16:33 | NUR ---
OT NOTE: PT PERFORMED WELL TODAY. BED MOB WITH MIN ASSIST. EOB SITTING WITH SPV X 4 MIN. ABLE TO LETA SHOES WITH SET UP AND EXT TIME. IN ROOM AMBULATION WITH GAIT BELT AND UNSTEADY GAIT. SIMPLE GROOMING WITH SET UP. AMB INTO HALLWAY FOR ENDURANCE AND BALANCE TRAINING WITH USE OF HAND STITCHER AT MIN ASSIST LEVEL AND USE OF 02 AT 4L. PT WANTED TO SIT UP ON EOB UPON RETURN TO ROOM. PT FATIGUED AND VERY SOB FOLLOWING AMBULATION ( APPROX 130 FT) SMITH NELSON OTR/L
[2018-08-01 17:23] VITALS: BP 125/76
--- NOTE | 2018-08-01 19:30 | NUR ---
PT ALERT AND ORIENTED WHEN ENTERING THE ROOM. PT HAS RIGHT UPPER ARM PICC LINE THAT IS SALINE LOCKED WITH DRESSING CHANGED DATED FOR 08/01. DRESSING ADHERED TO SKIN. PURPLE LINE DOES NOT FLUSH, BUT RED LINE FLUSHES WELL. PT WEARING 3 L HIGH FLOW. DRESSING TO THE SCROTOM THAT IS CLEAN DRY AND INTACT. DRESSING TO THE RIGHT SIDE OF PELVIC AREA. CLEAN DRY AND INTACT WELL. PT WEARING SCD'S. DENIES PAIN. HAS CALL LIGHT IN HEAD. DEMONSTRATES HOW TO USE CALL LIGHT. DENIES FUTHER NEEDS. CPOC.
[2018-08-01 21:43] VITALS: BP 113/84
--- NOTE | 2018-08-02 02:35 | NUR ---
PT RESTING WITH NO DISTRESS NOTED. UNLABORED RESPIRATIONS. O2 AT 3L HIGH FLOW CANNULA. EMPTIED URINAL. CALL LIGHT IN REACH
[2018-08-02 03:05] VITALS: BP 110/64
[2018-08-02 06:34] LABS: CALC OSMOLALITY 274 mosm/kg (275-300); CALCIUM 8.1 mg/dL (8.5-10.1); CARBON DIOXIDE 34.7 mmol/L (21.0-32.0); CHLORIDE - SERUM 103 mmol/L (98-107); CREATININE - SERUM 0.5 mg/dL (0.6-1.3); POTASSIUM - SERUM 4.4 mmol/L (3.5-5.1); SODIUM 139 mmol/L (136-145); UREA NITROGEN 9 mg/dL (7-18); eGFR NON AFRICAN AMERICAN > 90 mL/min (90-120)
[2018-08-02 06:35] LABS: GLUCOSE 65 mg/dL (74-106)
[2018-08-02 07:37] LABS: BASOPHILS 0.1 % (0-2); EOSINOPHILS 1.1 % (0-7); HEMOGLOBIN 8.9 g/dL (13.5-17.5); MCH 28.8 pg (26.0-34.0); MCHC 30.7 g/dL (31.0-37.0); MCV 93.9 fL (80.0-100.0); MEAN PLATELET VOLUME 10.4 fL (7.4-10.4); MONOCYTES 9.8 % (2-11); PLATELET COUNT 182 10x3/uL (130-400); RBC 3.09 10x6/uL (4.20-6.10); RDW 18.4 % (11.5-14.5); WBC 10.3 10x3/uL (4.8-10.8)
[2018-08-02 09:05] VITALS: BP 117/83
--- NOTE | 2018-08-02 10:43 | NUR ---
MORNING ASSESSMENT COMPLETE. SEE ASSESSMENT FLOWSHEET FOR FURTHER DETAILS. PT LYING IN BED AAO X4 TO PERSON, PLACE, TINME, AND SIUATION. DENIES NEEDS AT THIS TIME. CL IN REACH. SIDE RAILS UP X3 FOR PT SAEFTY. BED IN LOWEST POSITION.
--- NOTE | 2018-08-02 11:07 | NUR ---
CHANGED DRSG TO GROIN AREA. GRENNISH DRAINGAGE NOTED. PACKED WITH KERLEX IN STERILE WATER, TOPPED WITH DRY 4X4 AND ABD PAD. PT TOELRATED WELL.
[2018-08-02 12:57] VITALS: BP 109/66
--- NOTE | 2018-08-02 15:08 | MORECARE ---
CASE MANAGEMENT DISCHARGE SUMMARY PATIENT: CHRISTI JOY UNIT: [id number] ADM DATE: 07/22/18 AGE: 62 : 59 SEX: M ROOM/BED: D.2234 AUTHOR: KOLTONDOC PHYSICIAN: REFERRING PHYSICIAN: ROSHNI PINEDA MD DATE OF SERVICE: 08/02/18 Discharge Plan Patient Name: CHRISTI JOY Facility: [facility]:[place] : 1955 Planned Disposition: Anticipated Discharge Date: Discharge Date: Expected LOS: Initial Reviewer: [id number] Initial Review Date: 07/22/2018 Generated: 08/02/18 4:08 pm Comments DCP- Discharge Planning Updated by [email or web address]: Jannet Sotomayor on 08/01/18 7:[address] Patient does not have benefits for LTACH. I have offered Inpatient rehab, he refuses, states he is "going home". CM will continue to follow and assist with discharge planning/needs. DCP- Discharge Planning Updated by [id number]: Jannet Sotomayor on 07/31/18 3:[address] I spoke with Alma Delia with [employer] [facility] in [place]. Patient states he does not have a teachable career discovery teacher at home. He states he does not have a friend or relative that can assist with dressing changes. His nurse does not think that the patient is able to do his dressing change because of location. Alma Delia with [employer] [facility] states they cannot accept the patient. I called [facility] in [place] and spoke with Daria and she also states that they cannot do his dressing without a teachable career discovery teacher. He does have Medicaid approved per [employer] in [facility]. I spoke with the patient about going to inpatient rehab either here or at [place] and he refuses. He states he is going home. I informed him that I could not get a home health service to see him daily for his dressing changes. I called Dr. Rios's office and spoke to Samara (his nurse). She is going to see if they can assist with finding home health daily for this patient. CM will continue to follow and assist with discharge planning/needs. DCP- Discharge Planning Updated by [id number]: Jannet Sotomayor on 07/26/18 1:[address] Met with patient about HHS, [facility] in [facility]. I called and spoke to Jordyn, she states they can take Medicaid pending if he has seen his PCP recently. I informed her his PCP was Dr. Rios. He states he has seen him recently "when this all started." He will need transportation home as well. He may possibly need oxygen. I will have a walk test done 2 days prior to discharge. CM will continue to follow and assist with discharge planning/needs. DCP- Discharge Planning Updated by [email or web address]: Denise Saldivar on 07/25/18 10:[address] SPOKE WITH OLEG IN [employer].HE HAS MEDICAID PENDING DCP- Discharge Planning Updated by [email or web address]: Denise Saldivar on 07/24/18 6:[address] Patient Name: CHRISTI JOY Admission Status: ER Accout number: [id number] Admission Date: 07-22-2018 : 1955 Admission Diagnosis: Attending: JEFFY PINEDA Current LOS: 2 Anticipated DC Date: Planned Disposition: Primary Insurance: MEDICAID [place] PENDING CM met with patient at bedside about discharge planning /needs. Patient states he lives alone. Patient states he plans to discharge to his home. States he doesn't know how he is going to get home since his vehicle is at [facility]. He states he doesn't have anyone to help him. He states he has been trying for years to get his disability d/t his RA but hasn't received it and doesn't have any insurance. CM will contact [employer]. Patient states he doesn't have any medical equipment or home health services presently. States he feels his home environment is safe. Patient will most likely need HH when discharged for wound care. CM will continue to follow and assist as needed with discharge planning / needs. Discharge Planning Comments: Thermospray Operator: Denise Saldivar DCA - Discharge Planning Initial Assessment Updated by [email or web address]: Denise Saldivar on 07/24/18 7:01 pm * Is the patient Alert and Oriented? Yes * How many steps to enter\\exit or inside your home? * PCP DR. Sapna RIOS * Pharmacy [facility] * Preadmission Environment Home Alone * ADLs Independent * Equipment None * List name and contact numbers for known caregivers / representatives who currently or will assist patient after discharge: HAS NO ONE PER PT * Verbal permission to speak to the caregivers and representatives has been obtained from the patient. N/A * Community resources currently utilized None * Additional services required to return to the preadmission environment? No * Can the patient safely return to the preadmission environment? Yes * Has this patient been hospitalized within the prior 30 days at any hospital? No External Providers External Provider: OTHER-OTHER Next Contact Date: Service Request Date: Service Type: Resolution: Reviewer: Comments: Coverage Notice Reviewer: [id number] Keena Jannet Sotomayor Notice Issued Date-Time: 07/26/2018 14:11 Notice Type: Patient Choice Letter Notice Delivered To: Patient Relationship to Patient: Self Dye Boarding Machine Operator Name: Delivery Method: HAND - Hand Delivered Felipa Days: Prior Verbal Notification: Recipient Understood Notice: Yes Recipient Signature: Yes Med Rec Note Co-signed by Attending: Coverage Notice Comment: [facility] in [facility] Last DP export: 08/01/18 7:55 a Patient Name: CHRISTI JOY Page [phone] at 1508 All edits/amendments must be made on the electronic document DICTATION DATE: 08/02/18 1508 VACATION SALES ADVISOR: MELISSA 08/02/18 1508 RPT#: [id number] DC DATE: STATUS: ADM IN [facility] [address] [place] [address] END OF REPORT
--- NOTE | 2018-08-02 15:26 | MORECARE ---
CASE MANAGEMENT DISCHARGE SUMMARY PATIENT: CHRISTI JOY UNIT: [id number] ADM DATE: 07/22/18 AGE: 62 : 59 SEX: M ROOM/BED: D.2234 AUTHOR: KOLTON,DOC PHYSICIAN: REFERRING PHYSICIAN: ROSHNI PINEDA MD DATE OF SERVICE: 08/02/18 Discharge Plan Patient Name: CHRISTI JOY Facility: [facility]:[place] : 1955 Planned Disposition: Anticipated Discharge Date: Discharge Date: Expected LOS: Initial Reviewer: [email or web address] Initial Review Date: 07/22/2018 Generated: 08/02/18 4:26 pm Comments DCP- Discharge Planning Updated by [id number]: Jannet Sotomayor on 08/02/18 2:[address] I tried to call Dr. Rios's office today, they are closed. I called [facility] walk in clinic and spoke with the nurse there, she states that they would have to have a referral from Dr. Rios to see him in the walk in clinic for dressing changes daily. I will call Dr. Rios's office on Sunday to see if I can get them to set up this referral. CM will continue to follow and assist with discharge planning/needs. Dr. Rios's office: [phone] (nurse is Samara) [facility] walk in clinic P:[phone] F: [phone] DCP- Discharge Planning Updated by [email or web address]: Jannet Sotomayor on 08/01/18 7:[address] Patient does not have benefits for LTACH. I have offered Inpatient rehab, he refuses, states he is "going home". CM will continue to follow and assist with discharge planning/needs. DCP- Discharge Planning Updated by [id number]: Jannet Sotomayor on 07/31/18 3:[address] I spoke with Alma Delia with [facility] in [place]. Patient states he does not have a teachable care consultant at home. He states he does not have a friend or relative that can assist with dressing changes. His nurse does not think that the patient is able to do his dressing change because of location. Alma Delia with [facility] states they cannot accept the patient. I called [facility] in [place] and spoke with Daria and she also states that they cannot do his dressing without a teachable care consultant. He does have Medicaid approved per [employer] in [facility]. I spoke with the patient about going to inpatient rehab either here or at [place] and he refuses. He states he is going home. I informed him that I could not get a home health service to see him daily for his dressing changes. I called Dr. Rios's office and spoke to Samara (his nurse). She is going to see if they can assist with finding home health daily for this patient. CM will continue to follow and assist with discharge planning/needs. DCP- Discharge Planning Updated by [id number]: Jannet Sotomayor on 07/26/18 1:[address] Met with patient about [facility], [facility] in [place] signed. I called and spoke to Jordyn, she states they can take Medicaid pending if he has seen his PCP recently. I informed her his PCP was Dr. Rios. He states he has seen him recently "when this all started." He will need transportation home as well. He may possibly need oxygen. I will have a walk test done 2 days prior to discharge. CM will continue to follow and assist with discharge planning/needs. DCP- Discharge Planning Updated by [id number]: Denise Saldivar on 07/25/18 10:[address] SPOKE WITH [facility] IN [facility]HE HAS MEDICAID PENDING DCP- Discharge Planning Updated by [id number]: Denise Saldivar on 07/24/18 6:[address] Patient Name: CHRISTI JOY Admission Status: ER Accout number: [id number] Admission Date: 07-22-2018 : 1955 Admission Diagnosis: Attending: JEFFY PINEDA Current LOS: 2 Anticipated DC Date: Planned Disposition: Primary Insurance: MEDICAID [place] PENDING CM met with patient at bedside about discharge planning /needs. Patient states he lives alone. Patient states he plans to discharge to his home. States he doesn't know how he is going to get home since his vehicle is at [facility]. He states he doesn't have anyone to help him. He states he has been trying for years to get his disability d/t his RA but hasn't received it and doesn't have any insurance. CM will contact [facility]. Patient states he doesn't have any medical equipment or home health services presently. States he feels his home environment is safe. Patient will most likely need HH when discharged for wound care. CM will continue to follow and assist as needed with discharge planning / needs. Discharge Planning Comments: Flat Surfacer Jewel: Denise ANNE - Discharge Planning Initial Assessment Updated by [email or web address]: Denise Saldivar on 07/24/18 7:01 pm * Is the patient Alert and Oriented? Yes * How many steps to enter\\exit or inside your home? * PCP DR. Sapna RIOS * Pharmacy [facility] * Preadmission Environment Home Alone * ADLs Independent * Equipment None * List name and contact numbers for known caregivers / representatives who currently or will assist patient after discharge: HAS NO ONE PER PT * Verbal permission to speak to the caregivers and representatives has been obtained from the patient. N/A * Community resources currently utilized None * Additional services required to return to the preadmission environment? No * Can the patient safely return to the preadmission environment? Yes * Has this patient been hospitalized within the prior 30 days at any hospital? No Coverage Notice Reviewer: [id number] Keena Sotomayor Notice Issued Date-Time: 07/26/2018 14:11 Notice Type: Patient Choice Letter Notice Delivered To: Patient Relationship to Patient: Self Commuter Train Operator Name: Delivery Method: HAND - Hand Delivered Felipa Days: Prior Verbal Notification: Recipient Understood Notice: Yes Recipient Signature: Yes Med Rec Note Co-signed by Attending: Coverage Notice Comment: [facility] in [facility] Last DP export: 08/02/18 2:08 p Patient Name: CHRISTI JOY Page [id number] at 1526 All edits/amendments must be made on the electronic document DICTATION DATE: 08/02/181525 PROJECT ACCOUNTANT: MELISSA 08/02/181525 RPT#: [id number] DC DATE: STATUS: ADM IN [facility] [address] [place] [address] END OF REPORT
--- NOTE | 2018-08-02 15:38 | MORECARE ---
CASE MANAGEMENT DISCHARGE SUMMARY PATIENT: CHRISTI JOY UNIT: [id number] ADM DATE: 07/22/18 AGE: 62 : 59 SEX: M ROOM/BED: D.2234 AUTHOR: KOLTON,DOC PHYSICIAN: REFERRING PHYSICIAN: ROSHNI PINEDA MD DATE OF SERVICE: 08/02/18 Discharge Plan Patient Name: CHRISTI JOY Facility: [facility]:[place] : 1955 Planned Disposition: Anticipated Discharge Date: Discharge Date: Expected LOS: Initial Reviewer: [email or web address] Initial Review Date: 07/22/2018 Generated: 08/02/18 4:38 pm Comments DCP- Discharge Planning Updated by [id number]: Jannet Sotomayor on 08/02/18 2:[address] I called [facility] and they will not be able to transport the patient to [place] because he does not have an appropriate Medicaid number yet to bill. She states that they would have to wait until the patient had his number to be able to look him up and bill for transportation. I called [employer] and it would be 200 dollars to transport home. Karin has approved this in case management. CM will continue to follow and assist with discharge planning/needs. DCP- Discharge Planning Updated by [id number]: Jannet Sotomayor on 08/02/18 2:[address] I tried to call Dr. Rios's office today, they are closed. I called [facility] walk in clinic and spoke with the nurse there, she states that they would have to have a referral from Dr. Rios to see him in the walk in clinic for dressing changes daily. I will call Dr. Rios's office on Sunday to see if I can get them to set up this referral. CM will continue to follow and assist with discharge planning/needs. Dr. Rios's office: [phone] (nurse is Samara) [facility] walk in clinic P:[phone] F: [phone] DCP- Discharge Planning Updated by [id number]: Jannet Sotomayor on 08/01/18 7:[address] Patient does not have benefits for LTACH. I have offered Inpatient rehab, he refuses, states he is "going home". CM will continue to follow and assist with discharge planning/needs. DCP- Discharge Planning Updated by [id number]: Jannet Sotomayor on 07/31/18 3:[address] I spoke with Alma Delia with [facility] in [place]. Patient states he does not have a teachable pet care technician at home. He states he does not have a friend or relative that can assist with dressing changes. His nurse does not think that the patient is able to do his dressing change because of location. Alma Delia with [facility] states they cannot accept the patient. I called [facility] in [place] and spoke with Daria and she also states that they cannot do his dressing without a teachable pet care technician. He does have Medicaid approved per Bentley in [employer]. I spoke with the patient about going to inpatient rehab either here or at [place] and he refuses. He states he is going home. I informed him that I could not get a home health service to see him daily for his dressing changes. I called Dr. Rios's office and spoke to Samara (his nurse). She is going to see if they can assist with finding home health daily for this patient. CM will continue to follow and assist with discharge planning/needs. DCP- Discharge Planning Updated by [id number]: Jannet Sotomayor on 07/26/18 1:[address] Met with patient about [facility], SAMIR for [facility] in [place] signed. I called and spoke to Jordyn, she states they can take Medicaid pending if he has seen his PCP recently. I informed her his PCP was Dr. Rios. He states he has seen him recently "when this all started." He will need transportation home as well. He may possibly need oxygen. I will have a walk test done 2 days prior to discharge. CM will continue to follow and assist with discharge planning/needs. DCP- Discharge Planning Updated by [id number]: Denise Saldivar on 07/25/18 10:[address] SPOKE WITH OLEG IN [employer] -.HE HAS MEDICAID PENDING DCP- Discharge Planning Updated by [id number]: Denise Saldivar on 07/24/18 6:[address] Patient Name: CHRISTI JOY Admission Status: ER Accout number: [id number] Admission Date: 07-22-2018 : 1955 Admission Diagnosis: Attending: JEFFY PINEDA Current LOS: 2 Anticipated DC Date: Planned Disposition: Primary Insurance: MEDICAID [place] PENDING CM met with patient at bedside about discharge planning /needs. Patient states he lives alone. Patient states he plans to discharge to his home. States he doesn't know how he is going to get home since his vehicle is at [facility]. He states he doesn't have anyone to help him. He states he has been trying for years to get his disability d/t his RA but hasn't received it and doesn't have any insurance. CM will contact [facility]. Patient states he doesn't have any medical equipment or home health services presently. States he feels his home environment is safe. Patient will most likely need HH when discharged for wound care. CM will continue to follow and assist as needed with discharge planning / needs. Discharge Planning Comments: Wrapper Caser: Denise Saldivar [facility] - Discharge Planning Initial Assessment Updated by [id number]: Denise Saldivar on 07/24/18 7:01 pm * Is the patient Alert and Oriented? Yes * How many steps to enter\\exit or inside your home? * PCP DR. Sapna RIOS * Pharmacy [facility] * Preadmission Environment Home Alone * ADLs Independent * Equipment None * List name and contact numbers for known caregivers / representatives who currently or will assist patient after discharge: HAS NO ONE PER PT * Verbal permission to speak to the caregivers and representatives has been obtained from the patient. N/A * Community resources currently utilized None * Additional services required to return to the preadmission environment? No * Can the patient safely return to the preadmission environment? Yes * Has this patient been hospitalized within the prior 30 days at any hospital? No Coverage Notice Reviewer: [id number] Keena Sotomayor Notice Issued Date-Time: 07/26/2018 14:11 Notice Type: Patient Choice Letter Notice Delivered To: Patient Relationship to Patient: Self Industrial Relations Officer Name: Delivery Method: HAND - Hand Delivered Felipa Days: Prior Verbal Notification: Recipient Understood Notice: Yes Recipient Signature: Yes Med Rec Note Co-signed by Attending: Coverage Notice Comment: [facility] for [facility] in [facility] Last DP export: 08/02/18 2:26 p Patient Name: CHRISTI JOY Page [id number] at 1538 All edits/amendments must be made on the electronic document DICTATION DATE: 08/02/181536 AIR INTERCEPT CONTROLLER: MELISSA 08/02/181536 RPT#: [id number] DC DATE: STATUS: ADM IN [facility] [address] [place] [address] END OF REPORT
[2018-08-02 17:40] VITALS: BP 110/64
[2018-08-02 20:00] VITALS: BP 115/68
--- NOTE | 2018-08-02 20:00 | NUR ---
ALERT AND ORIENTED WHEN ENTERING THE ROOM. PT UPSET ABOUT HAVING TO STAY LONGER. STATES HE HAS FINANCIAL RESPONSIBILITIES HE NEEDS TO TAKE CARE OF AND HE DOES NOT HAVE ANYONE WHO CAN HELP HIM AT THIS TIME. PT DENIES PAIN. WEARING SCDS BILATERALLY. DRESSING TO RIGHT GROIN CLEAN AND DRY AT THIS TIME. SCROTOL PACKING DRY AND INTACT REINFORCED WITH BRIEF. GENERALIZED RED RASH. DENIES PAIN FROM RASH. WEARING 3 L HIGH FLOW NASAL CANNULA. RIGHT UPPER ARM PICC LINE THAT FLUSHES WELL. DENIES FURTHER NEEDS AT THIS TIME. HAS CALL LIGHT IN HAND.
[2018-08-03] VITALS: BP 104/58
--- NOTE | 2018-08-03 01:43 | NUR ---
RESTING WITH UNLABORED RESPIRATIONS. DENIES PAIN OR DISCOMFORT. NASAL CANNULA IN PLACE. CALL LIGHT WITH IN REACH.
[2018-08-03 04:00] VITALS: BP 120/73
--- NOTE | 2018-08-03 05:46 | NUR ---
LABS OBTAINED VIA PICC LINE AND GIVEN TO AIR PURIFIER SERVICER.
--- NOTE | 2018-08-03 06:30 | NUR ---
I AGREE WITH FISH HATCHERY LABORER ASSESSMENT.
[2018-08-03 07:46] LABS: BASOPHILS 0.2 % (0-2); EOSINOPHILS 0.8 % (0-7); HEMATOCRIT 33.2 % (42.0-54.0); HEMOGLOBIN 10.5 g/dL (13.5-17.5); IMMATURE GRANULOCYTES 0.8 % (0-5); LYMPHOCYTES 19.7 % (15-50); MCH 29.2 pg (26.0-34.0); MCHC 31.6 g/dL (31.0-37.0); MCV 92.2 fL (80.0-100.0); MEAN PLATELET VOLUME 10.6 fL (7.4-10.4); MONOCYTES 8.1 % (2-11); NEUTROPHILS 70.4 % (40-80); PLATELET COUNT 191 10x3/uL (130-400); RDW 18.4 % (11.5-14.5); WBC 9.7 10x3/uL (4.8-10.8)
[2018-08-03 07:48] LABS: CALC OSMOLALITY 274 mosm/kg (275-300); CALCIUM 8.3 mg/dL (8.5-10.1); CARBON DIOXIDE 30.2 mmol/L (21.0-32.0); CHLORIDE - SERUM 102 mmol/L (98-107); CREATININE - SERUM 0.4 mg/dL (0.6-1.3); GLUCOSE 91 mg/dL (74-106); POTASSIUM - SERUM 4.6 mmol/L (3.5-5.1); SODIUM 138 mmol/L (136-145); UREA NITROGEN 9 mg/dL (7-18); eGFR NON AFRICAN AMERICAN > 90 mL/min (90-120)
[2018-08-03 10:19] VITALS: BP 97/60
[2018-08-03 18:08] VITALS: BP 100/55
--- NOTE | 2018-08-03 19:30 | NUR ---
ALERT AND ORIENTED. HOB ELEVATED. POSITIVE SPIRITS THIS EVENING. 3L HF NC. RIGHT UPPER ARM PICC. DRESSING ADHERED TO SKIN. DENIES NEEDS AT THIS TIME. SCROTOL DRESSING AND RIGHT GROIN DRESSING REMAIN INTACT AT THIS TIME. CALL LIGHT IN REACH. ASKS FOR MEDICAITONS TO BE ADMINSTERED EARLY PT STATES HE IS READY FOR BED. CALL LIGHT IN REACH. CPOC.
[2018-08-03 21:07] VITALS: BP 91/56
--- NOTE | 2018-08-04 06:34 | NUR ---
I AGREE WITH THE WATER MAIN PIPE LAYER ASSESSMENT.
[2018-08-04 06:44] LABS: BASOPHILS 0.3 % (0-2); EOSINOPHILS 0.7 % (0-7); HEMATOCRIT 32.3 % (42.0-54.0); HEMOGLOBIN 10.1 g/dL (13.5-17.5); IMMATURE GRANULOCYTES 0.8 % (0-5); LYMPHOCYTES 18.2 % (15-50); MCH 28.9 pg (26.0-34.0); MCHC 31.3 g/dL (31.0-37.0); MCV 92.6 fL (80.0-100.0); MEAN PLATELET VOLUME 10.9 fL (7.4-10.4); MONOCYTES 11.4 % (2-11); NEUTROPHILS 68.6 % (40-80); PLATELET COUNT 217 10x3/uL (130-400); RBC 3.49 10x6/uL (4.20-6.10); RDW 18.5 % (11.5-14.5); WBC 10.5 10x3/uL (4.8-10.8)
[2018-08-04 06:55] LABS: CALC OSMOLALITY 272 mosm/kg (275-300); CALCIUM 8.2 mg/dL (8.5-10.1); CARBON DIOXIDE 31.3 mmol/L (21.0-32.0); CHLORIDE - SERUM 102 mmol/L (98-107); CREATININE - SERUM 0.5 mg/dL (0.6-1.3); GLUCOSE 77 mg/dL (74-106); POTASSIUM - SERUM 5.1 mmol/L (3.5-5.1); SODIUM 137 mmol/L (136-145); eGFR NON AFRICAN AMERICAN > 90 mL/min (90-120)
[2018-08-04 06:56] LABS: UREA NITROGEN 13 mg/dL (7-18)
[2018-08-04 08:05] VITALS: BP 87/56
[2018-08-04 11:53] VITALS: BP 91/57
[2018-08-04 15:06] VITALS: BP 90/59
--- NOTE | 2018-08-04 15:25 | NUR ---
I have reviewed this patient and I concur with the Shift Assessment completed by the Licensed Practical Nurse today this shift.
--- NOTE | 2018-08-04 15:27 | NUR ---
I have reviewed this patient and I concur with the Shift Assessment completed by the Licensed Practical Nurse today this shift.
--- NOTE | 2018-08-04 15:49 | NUR ---
I have reviewed this patient and I concur with the Shift Assessment completed by the Licensed Practical Nurse today this shift.
--- NOTE | 2018-08-04 17:38 | MORECARE ---
CASE MANAGEMENT DISCHARGE SUMMARY PATIENT: CHRISTI JOY UNIT: [id number] ADM DATE: 07/22/18 AGE: 62 : 59 SEX: M ROOM/BED: D.2234 AUTHOR: KOLTON,DOC PHYSICIAN: REFERRING PHYSICIAN: ROSHNI PINEDA MD DATE OF SERVICE: 08/04/18 Discharge Plan Patient Name: CHRISTI JOY Facility: [facility]:[place] : 1955 Planned Disposition: Anticipated Discharge Date: Discharge Date: Expected LOS: Initial Reviewer: [id number] Initial Review Date: 07/22/2018 Generated: 08/04/18 6:38 pm Comments DCP- Discharge Planning Updated by [id number]: Nilsa Fonseca on 08/04/18 4:[address] PATIENT HAS NASAL O2 AT 3/L. HE WILL NEED ABG'S DRAWN TO QUALIFY FOR OXYGEN W/ MEDICAID HIS INSURER. AWAIT APPROVAL FOR WOUND CARE AT WALK IN CLINIC IN [place]. PCP REFERRAL FROM DR RIOS MUST BE RECEIVED. MD NOT AVAILABLE UNTIL SUNDAY. DCP- Discharge Planning Updated by [id number]: Jannet Sotomayor on 08/02/18 2:[address] I called [facility] and they will not be able to transport the patient to [place] because he does not have an appropriate Medicaid number yet to bill. She states that they would have to wait until the patient had his number to be able to look him up and bill for transportation. I called [employer] and it would be 200 dollars to transport home. Karin has approved this in case management. CM will continue to follow and assist with discharge planning/needs. DCP- Discharge Planning Updated by [id number]: Jannet Sotomayor on 08/02/18 2:[address] I tried to call Dr. Rios's office today, they are closed. I called [facility] walk in clinic and spoke with the nurse there, she states that they would have to have a referral from Dr. Rios to see him in the walk in clinic for dressing changes daily. I will call Dr. Rios's office on Sunday to see if I can get them to set up this referral. CM will continue to follow and assist with discharge planning/needs. Dr. Rios's office: [phone] (nurse is Samara) [facility] walk in clinic P:[phone] F: [phone] DCP- Discharge Planning Updated by [id number]: Jannet Bran on 08/01/18 7:[address] Patient does not have benefits for LTACH. I have offered Inpatient rehab, he refuses, states he is "going home". CM will continue to follow and assist with discharge planning/needs. DCP- Discharge Planning Updated by [id number]: Jannet Bran on 07/31/18 3:[address] I spoke with Alma Delia with [facility] in [place]. Patient states he does not have a teachable health care coordinator at home. He states he does not have a friend or relative that can assist with dressing changes. His nurse does not think that the patient is able to do his dressing change because of location. Alma Delia with [facility] states they cannot accept the patient. I called [facility] [place] and spoke with Daria and she also states that they cannot do his dressing without a teachable health care coordinator. He does have Medicaid approved per Bentley in [facility]. I spoke with the patient about going to inpatient rehab either here or at [place] and he refuses. He states he is going home. I informed him that I could not get a home health service to see him daily for his dressing changes. I called Dr. Rios's office and spoke to Samara (his nurse). She is going to see if they can assist with finding home health daily for this patient. CM will continue to follow and assist with discharge planning/needs. DCP- Discharge Planning Updated by [id number]: Jannet Sotomayor on 07/26/18 1:[address] Met with patient about [facility], SAMIR for [facility] in [place] signed. I called and spoke to Jordyn, she states they can take Medicaid pending if he has seen his PCP recently. I informed her his PCP was Dr. Rios. He states he has seen him recently "when this all started." He will need transportation home as well. He may possibly need oxygen. I will have a walk test done 2 days prior to discharge. CM will continue to follow and assist with discharge planning/needs. DCP- Discharge Planning Updated by [id number]: Denise Saldivar on 07/25/18 10:[address] SPOKE WITH [facility] IN [employer] -.HE HAS MEDICAID PENDING DCP- Discharge Planning Updated by [id number]: Denise Saldivar on 07/24/18 6:[address] Patient Name: CHRISTI JOY Admission Status: ER Accout number: [id number] Admission Date: 07-22-2018 : 1955 Admission Diagnosis: Attending: JEFFY PINEDA Current LOS: 2 Anticipated DC Date: Planned Disposition: Primary Insurance: MEDICAID [place] PEND[place] CM met with patient at bedside about discharge planning /needs. Patient states he lives alone. Patient states he plans to discharge to his home. States he doesn't know how he is going to get home since his vehicle is at [facility]. He states he doesn't have anyone to help him. He states he has been trying for years to get his disability d/t his RA but hasn't received it and doesn't have any insurance. CM will contact [facility]. Patient states he doesn't have any medical equipment or home health services presently. States he feels his home environment is safe. Patient will most likely need HH when discharged for wound care. CM will continue to follow and assist as needed with discharge planning / needs. Discharge Planning Comments: Manager Ui: Denise Saldivar [facility] - Discharge Planning Initial Assessment Updated by [id number]: Deinse Saldivar on 07/24/18 7:01 pm * Is the patient Alert and Oriented? Yes * How many steps to enter\\exit or inside your home? * PCP DR. Sapna RIOS * Pharmacy [facility] * Preadmission Environment Home Alone * ADLs Independent * Equipment None * List name and contact numbers for known caregivers / representatives who currently or will assist patient after discharge: HAS NO ONE PER PT * Verbal permission to speak to the caregivers and representatives has been obtained from the patient. N/A * Community resources currently utilized None * Additional services required to return to the preadmission environment? No * Can the patient safely return to the preadmission environment? Yes * Has this patient been hospitalized within the prior 30 days at any hospital? No Coverage Notice Reviewer: [id number] - Jannet Orrell Notice Issued Date-Time: 07/26/2018 14:11 Notice Type: Patient Choice Letter Notice Delivered To: Patient Relationship to Patient: Self Polisher Aluminum Name: Delivery Method: HAND - Hand Delivered Felipa Days: Prior Verbal Notification: Recipient Understood Notice: Yes Recipient Signature: Yes Med Rec Note Co-signed by Attending: Coverage Notice Comment: [facility] for [facility] in [place] and [facility] Last DP export: 08/02/18 2:38 p Patient Name: CHRISTI JOY Page [id number] at 1738 All edits/amendments must be made on the electronic document DICTATION DATE: 08/04/181737 TILTING HEAD BAND SAWYER: MELISSA 08/04/181737 RPT#: [id number] DC DATE: STATUS: ADM IN [facility] [address] [place] [address] END OF REPORT
[2018-08-04 20:22] VITALS: BP 89/48
--- NOTE | 2018-08-04 20:30 | NUR ---
ALERT AND ORIENTED. RIGHT UPPER ARM PICC FLUSHED. DRESSING CHANGE PERFORMED. PT TOLERATED WELL. DENIES PAIN AT THIS TIME. CALL LIGHT IN REACH.
[2018-08-05 00:49] VITALS: BP 88/63
--- NOTE | 2018-08-05 03:40 | NUR ---
I have reviewed this patient and I concur with the Shift Assessment completed by the Licensed Practical Nurse today this shift.
[2018-08-05 06:02] VITALS: BP 92/63
[2018-08-05 09:00] VITALS: BP 88/44
[2018-08-05 10:52] LABS: BASOPHILS 0.2 % (0-2); EOSINOPHILS 0.8 % (0-7); HEMATOCRIT 31.6 % (42.0-54.0); HEMOGLOBIN 9.9 g/dL (13.5-17.5); IMMATURE GRANULOCYTES 0.8 % (0-5); LYMPHOCYTES 22.4 % (15-50); MCH 29.3 pg (26.0-34.0); MCHC 31.3 g/dL (31.0-37.0); MCV 93.5 fL (80.0-100.0); MEAN PLATELET VOLUME 9.9 fL (7.4-10.4); MONOCYTES 13.5 % (2-11); NEUTROPHILS 62.3 % (40-80); PLATELET COUNT 204 10x3/uL (130-400); RBC 3.38 10x6/uL (4.20-6.10); RDW 18.7 % (11.5-14.5); WBC 8.5 10x3/uL (4.8-10.8)
[2018-08-05 11:07] LABS: ALBUMIN 2.3 g/dL (3.4-5.0); ALKALINE PHOSPHATASE 56 U/L (46-116); ALT (SGPT) 17 U/L (10-68); BILIRUBIN - TOTAL 0.59 mg/dL (0.2-1.3); CALC OSMOLALITY 277 mosm/kg (275-300); CALCIUM 8.2 mg/dL (8.5-10.1); CARBON DIOXIDE 28.7 mmol/L (21.0-32.0); CHLORIDE - SERUM 104 mmol/L (98-107); CREATININE - SERUM 0.5 mg/dL (0.6-1.3); GLUCOSE 102 mg/dL (74-106); POTASSIUM - SERUM 4.7 mmol/L (3.5-5.1); PROTEIN - SERUM 5.9 g/dL (6.4-8.2); SODIUM 138 mmol/L (136-145); eGFR NON AFRICAN AMERICAN > 90 mL/min (90-120)
[2018-08-05 11:12] LABS: UREA NITROGEN 17 mg/dL (7-18)
[2018-08-05 14:03] VITALS: BP 85/57
[2018-08-05 16:53] VITALS: BP 97/64
[2018-08-05 22:12] VITALS: BP 91/55
--- NOTE | 2018-08-06 01:00 | NUR ---
TEMP 101.9F ORALLY. SPO2 80s ON ROOM AIR. 2L O2 APPLIED. BLANKET REMOVED, ADJUSTED THERMOSTAT. HEIDI CALLED FOR TYLENOL. INFORMED PT OF NEW TYLENOL ORDER , HE STATED HE WOULD LIKE TO GIVE IT A MINUTE TO COME DOWN NATURALLY IF HE CAN. IF IT DOESN'T COME DOWN, HE WILL TAKE ONE.
[2018-08-06 01:15] VITALS: BP 107/75
--- NOTE | 2018-08-06 01:45 | NUR ---
TEMP 97.8F, SPO2 94% ON 2L. WILL CONTINUE TO MONITOR.
--- NOTE | 2018-08-06 03:09 | NUR ---
I have reviewed this patient and I concur with the Shift Assessment completed by the Licensed Practical Nurse today this shift.
[2018-08-06 05:29] VITALS: BP 97/58
[2018-08-06 07:03] LABS: BASOPHILS 0.3 % (0-2); EOSINOPHILS 0.9 % (0-7); HEMATOCRIT 30.3 % (42.0-54.0); HEMOGLOBIN 9.6 g/dL (13.5-17.5); IMMATURE GRANULOCYTES 0.4 % (0-5); LYMPHOCYTES 28.7 % (15-50); MCH 29.2 pg (26.0-34.0); MCHC 31.7 g/dL (31.0-37.0); MCV 92.1 fL (80.0-100.0); MEAN PLATELET VOLUME 10.3 fL (7.4-10.4); MONOCYTES 14.3 % (2-11); NEUTROPHILS 55.4 % (40-80); PLATELET COUNT 229 10x3/uL (130-400); RBC 3.29 10x6/uL (4.20-6.10); RDW 18.3 % (11.5-14.5); WBC 9.1 10x3/uL (4.8-10.8)
[2018-08-06 07:09] LABS: ALBUMIN 2.4 g/dL (3.4-5.0); ALKALINE PHOSPHATASE 49 U/L (46-116); ALT (SGPT) 19 U/L (10-68); BILIRUBIN - TOTAL 0.73 mg/dL (0.2-1.3); CALC OSMOLALITY 273 mosm/kg (275-300); CARBON DIOXIDE 26.4 mmol/L (21.0-32.0); CHLORIDE - SERUM 103 mmol/L (98-107); CREATININE - SERUM 0.6 mg/dL (0.6-1.3); GLUCOSE 83 mg/dL (74-106); POTASSIUM - SERUM 4.2 mmol/L (3.5-5.1); SODIUM 137 mmol/L (136-145); UREA NITROGEN 14 mg/dL (7-18); eGFR NON AFRICAN AMERICAN > 90 mL/min (90-120)
[2018-08-06 09:04] VITALS: BP 91/45
--- NOTE | 2018-08-06 09:57 | MORECARE ---
CASE MANAGEMENT DISCHARGE SUMMARY PATIENT: CHRISTI JOY UNIT: [id number] ADM DATE: 07/22/18 AGE: 62 : 59 SEX: M ROOM/BED: D.2234 AUTHOR: KOLTON,DOC PHYSICIAN: REFERRING PHYSICIAN: ROSHNI PINEDA MD DATE OF SERVICE: 08/06/18 Discharge Plan Patient Name: CHRISTI JOY Facility: [facility]:[place] : 1955 Planned Disposition: Anticipated Discharge Date: Discharge Date: Expected LOS: Initial Reviewer: [email or web address] Initial Review Date: 07/22/2018 Generated: 08/06/18 10:57 am Comments DCP- Discharge Planning Updated by [id number]: Nilsa Fonseca on 08/04/18 4:[address] PATIENT HAS NASAL O2 AT 3/L. HE WILL NEED ABG'S DRAWN TO QUALIFY FOR OXYGEN W/ MEDICAID HIS INSURER. AWAIT APPROVAL FOR WOUND CARE AT WALK IN CLINIC IN [place]. PCP REFERRAL FROM DR RIOS MUST BE RECEIVED. MD NOT AVAILABLE UNTIL SUNDAY. DCP- Discharge Planning Updated by [id number]: Jannet Sotomayor on 08/02/18 2:[address] I called [facility] and they will not be able to transport the patient to [place] because he does not have an appropriate Medicaid number yet to bill. She states that they would have to wait until the patient had his number to be able to look him up and bill for transportation. I called [employer] and it would be 200 dollars to transport home. Karin has approved this in case management. CM will continue to follow and assist with discharge planning/needs. DCP- Discharge Planning Updated by [id number]: Jannet Sotomayor on 08/02/18 2:[address] I tried to call Dr. Rios's office today, they are closed. I called [facility] walk in clinic and spoke with the nurse there, she states that they would have to have a referral from Dr. Rios to see him in the walk in clinic for dressing changes daily. I will call Dr. Rios's office on Sunday to see if I can get them to set up this referral. CM will continue to follow and assist with discharge planning/needs. Dr. Rios's office: [phone] (nurse is Samara) [facility] walk in clinic P:[phone] F: [phone] DCP- Discharge Planning Updated by [email or web address]: Jannet Bran on 08/01/18 7:[address] Patient does not have benefits for LTACH. I have offered Inpatient rehab, he refuses, states he is "going home". CM will continue to follow and assist with discharge planning/needs. DCP- Discharge Planning Updated by [id number]: Jannet Bran on 07/31/18 3:[address] I spoke with Alma Delia with [facility] in [place]. Patient states he does not have a teachable lawn care technician at home. He states he does not have a friend or relative that can assist with dressing changes. His nurse does not think that the patient is able to do his dressing change because of location. Alma Delia with [facility] states they cannot accept the patient. I called [facility] [place] and spoke with Daria and she also states that they cannot do his dressing without a teachable lawn care technician. He does have Medicaid approved per Bentley in [facility]. I spoke with the patient about going to inpatient rehab either here or at [place] and he refuses. He states he is going home. I informed him that I could not get a home health service to see him daily for his dressing changes. I called Dr. Rios's office and spoke to Samara (his nurse). She is going to see if they can assist with finding home health daily for this patient. CM will continue to follow and assist with discharge planning/needs. DCP- Discharge Planning Updated by [id number]: Jannet Sotomayor on 07/26/18 1:[address] Met with patient about [facility], SAMIR for [facility] in [place] signed. I called and spoke to Jordyn, she states they can take Medicaid pending if he has seen his PCP recently. I informed her his PCP was Dr. Rios. He states he has seen him recently "when this all started." He will need transportation home as well. He may possibly need oxygen. I will have a walk test done 2 days prior to discharge. CM will continue to follow and assist with discharge planning/needs. DCP- Discharge Planning Updated by [id number]: Denise Saldivar on 07/25/18 10:[address] SPOKE WITH OLEG IN [employer] -.HE HAS MEDICAID PENDING DCP- Discharge Planning Updated by [id number]: Denise Saldivar on 07/24/18 6:[address] Patient Name: CHRISTI JOY Admission Status: ER Accout number: [id number] Admission Date: 07-22-2018 : 1955 Admission Diagnosis: Attending: JEFFY PINEDA Current LOS: 2 Anticipated DC Date: Planned Disposition: Primary Insurance: MEDICAID [place] PEND[place] CM met with patient at bedside about discharge planning /needs. Patient states he lives alone. Patient states he plans to discharge to his home. States he doesn't know how he is going to get home since his vehicle is at [facility]. He states he doesn't have anyone to help him. He states he has been trying for years to get his disability d/t his RA but hasn't received it and doesn't have any insurance. CM will contact the grafter. Patient states he doesn't have any medical equipment or home health services presently. States he feels his home environment is safe. Patient will most likely need HH when discharged for wound care. CM will continue to follow and assist as needed with discharge planning / needs. Discharge Planning Comments: Turning Lathe Tender: Denise Saldivar TARANPIA - Discharge Planning Initial Assessment Updated by [id number]: Denise Saldivar on 07/24/18 7:01 pm * Is the patient Alert and Oriented? Yes * How many steps to enter\\exit or inside your home? * PCP DR. Sapna RIOS * Pharmacy [facility] * Preadmission Environment Home Alone * ADLs Independent * Equipment None * List name and contact numbers for known caregivers / representatives who currently or will assist patient after discharge: HAS NO ONE PER PT * Verbal permission to speak to the caregivers and representatives has been obtained from the patient. N/A * Community resources currently utilized None * Additional services required to return to the preadmission environment? No * Can the patient safely return to the preadmission environment? Yes * Has this patient been hospitalized within the prior 30 days at any hospital? No External Providers External Provider: [facility] Next Contact Date: Service Request Date: Service Type: Resolution: Reviewer: Comments: Coverage Notice Reviewer: [id number] Keena Jannet Sotomayor Notice Issued Date-Time: 07/26/2018 14:11 Notice Type: Patient Choice Letter Notice Delivered To: Patient Relationship to Patient: Self Crm Business Analyst Name: Delivery Method: HAND - Hand Delivered Felipa Days: Prior Verbal Notification: Recipient Understood Notice: Yes Recipient Signature: Yes Med Rec Note Co-signed by Attending: Coverage Notice Comment: [facility] for [facility] in [facility] Last DP export: 08/04/18 4:38 p Patient Name: CHRISTI JOY Page [id number] at 0957 All edits/amendments must be made on the electronic document DICTATION DATE: 08/06/18956 WATER TREATMENT PLANT SUPERVISOR: MELISSA 08/06/18956 RPT#: [id number] DC DATE: STATUS: ADM IN [facility] [address] [place] [address] END OF REPORT
--- NOTE | 2018-08-06 10:05 | MORECARE ---
CASE MANAGEMENT DISCHARGE SUMMARY PATIENT: CHRISTI JOY UNIT: [id number] ADM DATE: 07/22/18 AGE: 62 : 59 SEX: M ROOM/BED: D.2234 AUTHOR: KOLTON,DOC PHYSICIAN: REFERRING PHYSICIAN: ROSHNI PINEDA MD DATE OF SERVICE: 08/06/18 Discharge Plan Patient Name: CHRISTI JOY Facility: [facility]:[place] : 1955 Planned Disposition: Anticipated Discharge Date: Discharge Date: Expected LOS: Initial Reviewer: [id number] Initial Review Date: 07/22/2018 Generated: 08/06/18 11:04 am Comments DCP- Discharge Planning Updated by [id number]: Jannet Sotomayor on 08/06/18 9:[address] I have faxed the walk test with ABG report to [facility] and spoke with Scott. I have called Dr. Rios's office and left a message with Samara to have doctor Rios send a referral to the [place] [facility] to have his dressing changed daily with NS wet to dry dressings. 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 The [facility] bus will not transport him. CM will continue to follow and assist with discharge planning/needs. DCP- Discharge Planning Updated by [id number]: Nilsa Fonseca on 08/04/18 4:[address] PATIENT HAS NASAL O2 AT 3/L. HE WILL NEED ABG'S DRAWN TO QUALIFY FOR OXYGEN W/ MEDICAID HIS INSURER. AWAIT APPROVAL FOR WOUND CARE AT WALK IN CLINIC IN [place]. PCP REFERRAL FROM DR RIOS MUST BE RECEIVED. NOT AVAILABLE UNTIL SUNDAY. DCP- Discharge Planning Updated by [email or web address]: Jannet Sotomayor on 08/02/18 2:[address] I called [facility] transportation and they will not be able to transport the patient to [place] because he does not have an appropriate Medicaid number yet to bill. She states that they would have to wait until the patient had his number to be able to look him up and bill for transportation. I called Taxi and it would be 200 dollars to transport home. Karin has approved this in case management. CM will continue to follow and assist with discharge planning/needs. DCP- Discharge Planning Updated by [email or web address]: Jannet Sotomayor on 08/02/18 2:[address] I tried to call Dr. Rios's office today, they are closed. I called [facility] walk in clinic and spoke with the nurse there, she states that they would have to have a referral from Dr. Rios to see him in the walk in clinic for dressing changes daily. I will call Dr. Rios's office on Sunday to see if I can get them to set up this referral. CM will continue to follow and assist with discharge planning/needs. Dr. Rios's office: [phone] (nurse is Samara) [facility] walk in clinic P:[phone] F: [phone] DCP- Discharge Planning Updated by [id number]: Jannet Sotomayor on 08/01/18 7:[address] Patient does not have benefits for LTACH. I have offered Inpatient rehab, he refuses, states he is "going home". CM will continue to follow and assist with discharge planning/needs. DCP- Discharge Planning Updated by [id number]: Jannet Sotomayor on 07/31/18 3:[address] I spoke with Alma Delia with [facility] in [place]. Patient states he does not have a teachable patient care provider at home. He states he does not have a friend or relative that can assist with dressing changes. His nurse does not think that the patient is able to do his dressing change because of location. Alma Delia with [facility] states they cannot accept the patient. I called [facility] in [place] and spoke with Daria and she also states that they cannot do his dressing without a teachable patient care provider. He does have Medicaid approved per [place] in [facility]. I spoke with the patient about going to inpatient rehab either here or at [place] and he refuses. He states he is going home. I informed him that I could not get a home health service to see him daily for his dressing changes. I called Dr. Rios's office and spoke to Samara (his nurse). She is going to see if they can assist with finding home health daily for this patient. CM will continue to follow and assist with discharge planning/needs. DCP- Discharge Planning Updated by [id number]: Jannet Sotomayor on 07/26/18 1:[address] Met with patient about HHS, [facility] for [facility] in [facility]. I called and spoke to Jordyn, she states they can take Medicaid pending if he has seen his PCP recently. I informed her his PCP was Dr. Rios. He states he has seen him recently "when this all started." He will need transportation home as well. He may possibly need oxygen. I will have a walk test done 2 days prior to discharge. CM will continue to follow and assist with discharge planning/needs. DCP- Discharge Planning Updated by [id number]: Denise Saldivar on 07/25/18 10:[address] SPOKE WITH [facility] IN [place] -.HE HAS MEDICAID PENDING DCP- Discharge Planning Updated by [id number]: Denise Saldivar on 07/24/18 6:[address] Patient Name: CHRISTI JOY Admission Status: ER Accout number: [id number] Admission Date: 07-22-2018 : 1955 Admission Diagnosis: Attending: JEFFY PINEDA Current LOS: 2 Anticipated DC Date: Planned Disposition: Primary Insurance: MEDICAID [place] PEND[place] CM met with patient at bedside about discharge planning /needs. Patient states he lives alone. Patient states he plans to discharge to his home. States he doesn't know how he is going to get home since his vehicle is at [facility]. He states he doesn't have anyone to help him. He states he has been trying for years to get his disability d/t his RA but hasn't received it and doesn't have any insurance. CM will contact [employer]. Patient states he doesn't have any medical equipment or home health services presently. States he feels his home environment is safe. Patient will most likely need HH when discharged for wound care. CM will continue to follow and assist as needed with discharge planning / needs. Discharge Planning Comments: Lav Crewman: Denise Saldivar DCPIA - Discharge Planning Initial Assessment Updated by [email or web address]: Denise Saldivar on 07/24/18 7:01 pm * Is the patient Alert and Oriented? Yes * How many steps to enter\\exit or inside your home? * PCP DR. Sapna RIOS * Pharmacy [facility] * Preadmission Environment Home Alone * ADLs Independent * Equipment None * List name and contact numbers for known caregivers / representatives who currently or will assist patient after discharge: HAS NO ONE PER PT * Verbal permission to speak to the caregivers and representatives has been obtained from the patient. N/A * Community resources currently utilized None * Additional services required to return to the preadmission environment? No * Can the patient safely return to the preadmission environment? Yes * Has this patient been hospitalized within the prior 30 days at any hospital? No Coverage Notice Reviewer: [id number] Keena Sotomayor Notice Issued Date-Time: 07/26/2018 14:11 Notice Type: Patient Choice Letter Notice Delivered To: Patient Relationship to Patient: Self Repairer Wood Furniture Name: Delivery Method: HAND - Hand Delivered Felipa Days: Prior Verbal Notification: Recipient Understood Notice: Yes Recipient Signature: Yes Med Rec Note Co-signed by Attending: Coverage Notice Comment: [facility] for [facility] in [facility] DP export: 08/06/18 8:57 a Patient Name: CHRISTI JOY Page [phone] at 1005 All edits/amendments must be made on the electronic document DICTATION DATE: 08/06/18 100 METAL ROOFING MECHANIC: MELISSA 08/06/18 1004 RPT#: [id number] DC DATE: STATUS: ADM IN [facility] [address] [place] [address] END OF REPORT
--- NOTE | 2018-08-06 12:06 | NUR ---
NUTRITION F/U PT TOLERATING REG DIET WITH GOOD INTAKE RECENT MEALS. WILL CONTINUE TO PROVIDE DIET, HONOR FOOD PREFERENCES. RD FOLLOWING
--- NOTE | 2018-08-06 12:52 | MORECARE ---
CASE MANAGEMENT DISCHARGE SUMMARY PATIENT: CHRISTI JOY UNIT: [id number] ADM DATE: 07/22/18 AGE: 62 : 59 SEX: M ROOM/BED: D.2234 AUTHOR: KOLTON,DOC PHYSICIAN: REFERRING PHYSICIAN: ROSHNI PINEDA MD DATE OF SERVICE: 08/06/18 Discharge Plan Patient Name: CHRISTI JOY Facility: [facility]:[place] : 1955 Planned Disposition: Anticipated Discharge Date: Discharge Date: Expected LOS: Initial Reviewer: [id number] Initial Review Date: 07/22/2018 Generated: 08/06/18 1:52 pm Comments DCP- Discharge Planning Updated by [id number]: Jannet Sotomayor on 08/06/18 11:[address] I CALLED AND SPOKE TO HUYEN ON MED SURG AT [facility]. HUYEN STATES THAT THEIR OUTPATIENT THERE DOES NOT DO DRESSING CHANGES, ONLY IV INFUSIONS. SHE STATES TO CALL DR OLVERA OFFICE FOR WOUND CARE. I CALLED DR BUSTAMANTE'S OFFICE AND SPOKE WITH EDWIGE, THEY ONLY SEE WEEKLY WITH A REFERRAL. I CALLED LINDA VARELA, KAILA AND JEANINE AND THEY WILL NOT SEE THE PATIENT WITHOUT A TEACHABLE FOOD TECHNICIAN. I CALLED AND SPOKE TO CHANA AT [facility] AND SHE STATES IF THE PATIENT CAN BE TAUGHT THEY MAY BE ABLE TO SEE HIM TO REINFORCE TEACHING. I SPOKE WITH HIS PRIMARY NURSE, SHIRA, AND SHE STATES THAT SHE WILL TEACH THE PATIENT WITH HIS DRESSING CHANGE TODAY. KAYA WITH [facility] WILL DELIVER PORTABLE OXYGEN TODAY. CM WILL CONTINUE TO FOLLOW AND ASSIST WITH DISCHARGE PLANNING/NEEDS. DCP- Discharge Planning Updated by [id number]: Jannet Sotomayor on 08/06/18 9:[address] I have faxed the walk test with ABG report to [facility] and spoke with Scott. I have called Dr. Rios's office and left a message with Samara to have doctor Blanca send a referral to the [place] [facility] to have his dressing changed daily with NS wet to dry dressings. 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 The [employer] bus will not transport him. CM will continue to follow and assist with discharge planning/needs. DCP- Discharge Planning Updated by [id number]: Nilsa Fonseca on 08/04/18 4:[address] PATIENT HAS NASAL O2 AT 3/L. HE WILL NEED ABG'S DRAWN TO QUALIFY FOR OXYGEN W/ MEDICAID HIS INSURER. AWAIT APPROVAL FOR WOUND CARE AT WALK IN CLINIC IN [place]. PCP REFERRAL FROM DR RIOS MUST BE RECEIVED. MD NOT AVAILABLE UNTIL SUNDAY. DCP- Discharge Planning Updated by [id number]: Jannet Sotomayor on 08/02/18 2:[address] I called [facility] transportation and they will not be able to transport the patient to [place] because he does not have an appropriate Medicaid number yet to bill. She states that they would have to wait until the patient had his number to be able to look him up and bill for transportation. I called Taxi and it would be 200 dollars to transport home. Karin has approved this in case management. CM will continue to follow and assist with discharge planning/needs. DCP- Discharge Planning Updated by [id number]: Jannet Sotomayor on 08/02/18 2:[address] I tried to call Dr. Rios's office today, they are closed. I called [facility] walk in clinic and spoke with the nurse there, she states that they would have to have a referral from Dr. Rios to see him in the walk in clinic for dressing changes daily. I will call Dr. Rios's office on Sunday to see if I can get them to set up this referral. CM will continue to follow and assist with discharge planning/needs. Dr. Rios's office: [phone] (nurse is Samara) [facility] walk in clinic P:[phone] F: [phone] DCP- Discharge Planning Updated by [id number]: Jannet Sotomayor on 08/01/18 7:[address] Patient does not have benefits for LTACH. I have offered Inpatient rehab, he refuses, states he is "going home". CM will continue to follow and assist with discharge planning/needs. DCP- Discharge Planning Updated by [id number]: Jannet Sotomayor on 07/31/18 3:[address] I spoke with Alma Delia with [facility] in [place]. Patient states he does not have a teachable ambulatory care nurse at home. He states he does not have a friend or relative that can assist with dressing changes. His nurse does not think that the patient is able to do his dressing change because of location. Alma Delia with [facility] states they cannot accept the patient. I called [facility] in [place] and spoke with Daria and she also states that they cannot do his dressing without a teachable ambulatory care nurse. He does have Medicaid approved per [place] in [employer]. I spoke with the patient about going to inpatient rehab either here or at [place] and he refuses. He states he is going home. I informed him that I could not get a home health service to see him daily for his dressing changes. I called Dr. Rios's office and spoke to Samara (his nurse). She is going to see if they can assist with finding home health daily for this patient. CM will continue to follow and assist with discharge planning/needs. DCP- Discharge Planning Updated by [id number]: Jannet Sotomayor on 07/26/18 1:[address] Met with patient about [facility], SAMIR for [facility] in [place] signed. I called and spoke to Chana, she states they can take Medicaid pending if he has seen his PCP recently. I informed her his PCP was Dr. Rios. He states he has seen him recently "when this all started." He will need transportation home as well. He may possibly need oxygen. I will have a walk test done 2 days prior to discharge. CM will continue to follow and assist with discharge planning/needs. DCP- Discharge Planning Updated by [id number]: Denise Saldivar on 07/25/18 10:[address] SPOKE WITH [facility] [place] [employer] [facility]HE HAS MEDICAID PENDING DCP- Discharge Planning Updated by [id number]: Denise Saldivar on 07/24/18 6:[address] Patient Name: CHRISTI JOY Admission Status: ER Accout number: [id number] Admission Date: 07-22-2018 : 1955 Admission Diagnosis: Attending: JEFFY PINEDA Current LOS: 2 Anticipated DC Date: Planned Disposition: Primary Insurance: MEDICAID [place] PEND[place] CM met with patient at bedside about discharge planning /needs. Patient states he lives alone. Patient states he plans to discharge to his home. States he doesn't know how he is going to get home since his vehicle is at [facility]. He states he doesn't have anyone to help him. He states he has been trying for years to get his disability d/t his RA but hasn't received it and doesn't have any insurance. CM will contact [facility]. Patient states he doesn't have any medical equipment or home health services presently. States he feels his home environment is safe. Patient will most likely need HH when discharged for wound care. CM will continue to follow and assist as needed with discharge planning / needs. Discharge Planning Comments: Clock And Watch Hands Painter: Denise CEEA - Discharge Planning Initial Assessment Updated by [email or web address]: Denise Saldivar on 07/24/18 7:01 pm * Is the patient Alert and Oriented? Yes * How many steps to enter\\exit or inside your home? * PCP DR. Sapna RIOS * Pharmacy [facility] * Preadmission Environment Home Alone * ADLs Independent * Equipment None * List name and contact numbers for known caregivers / representatives who currently or will assist patient after discharge: HAS NO ONE PER PT * Verbal permission to speak to the caregivers and representatives has been obtained from the patient. N/A * Community resources currently utilized None * Additional services required to return to the preadmission environment? No * Can the patient safely return to the preadmission environment? Yes * Has this patient been hospitalized within the prior 30 days at any hospital? No Coverage Notice Reviewer: [id number] Keena Sotomayor Notice Issued Date-Time: 07/26/2018 14:11 Notice Type: Patient Choice Letter Notice Delivered To: Patient Relationship to Patient: Self Housekeeper Hospital Name: Delivery Method: HAND - Hand Delivered Felipa Days: Prior Verbal Notification: Recipient Understood Notice: Yes Recipient Signature: Yes Med Rec Note Co-signed by Attending: Coverage Notice Comment: [facility] for [facility] in [facility] Last DP export: 08/06/18 9:05 a Patient Name: CHRISTI JOY Page [phone] at 1252 All edits/amendments must be made on the electronic document DICTATION DATE: 08/06/18 1250 WASTE HANDLING TECHNICIAN: MELISSA 08/06/18 1252 RPT#: [id number] DC DATE: STATUS: ADM IN [facility] [address] [place] [address] END OF REPORT
[2018-08-06 13:34] VITALS: BP 92/60
[2018-08-06 13:37] LABS: APPEARANCE CLEAR (CLEAR); BACTERIA FEW /hpf (NONE SEEN); BILIRUBIN NEGATIVE (NEGATIVE); COLOR YELLOW (YELLOW); EPITHELIAL CELLS 0-5 /hpf (0-5); GLUCOSE NEGATIVE (NEGATIVE); KETONE NEGATIVE (NEGATIVE); NITRITE NEGATIVE (NEGATIVE); PROTEIN NEGATIVE (NEGATIVE); SPECIFIC GRAVITY 1.015 (1.005-1.020); WHITE CELLS - URINE OCC /hpf (0-5)
[2018-08-06 13:38] LABS: MUCUS <1+ /lpf (NONE SEEN); RED CELLS - URINE 0-5 /hpf (0-5)
--- NOTE | 2018-08-06 14:21 | NUR ---
WET TO DRY DRESSING CHANGE PERFORMED USING 4X4'S AND STERILE SALINE COVERED WITH ABD PADS AND MEDIPORE TAPE. WOUND AREA COVERS PUBIC AREA, BACK AROUND RIGHT SIDE OF PENIS TO RIGHT BUTTOCK AND RECTAL AREA. ATTEMPTED TO TEACH PATIENT DRESSING CHANGE TECHNIQUE. HE IS UNABLE TO PERFORM DUE TO LACK OF ABILITY TO VISUALIZE AREA TO BE DRESSED AND SEVERE DEFORMITY OF BOTH HANDS DUE TO RHEUMATOID ARTHRITIS. PATIENT WILL NEED HELP WITH DRESSING CHANGES.
--- NOTE | 2018-08-06 15:08 | NUR ---
PICC LINE REMOVED PER PROTOCOL AT 35 CM. PRESSURE APPLIED X 5 IN. BIOPATCH AND OCCLUSIVE DRESSING APPLIED. PROCEDURE COMPLETED Ladonna SORIANO RN
--- NOTE | 2018-08-06 15:11 | NUR ---
[facility] CALLED TO TRANSPORT PATIENT TO [facility]. TOLD THEM THAT PAYMENT HAD BEEN APPROVED THROUGH [facility], CASE MANAGEMENT. THEY WILL CALL TO MED SURG DESK UPON ARRIVAL TO SUPERINTENDENT DISTRIBUTION PATIENT.
--- NOTE | 2018-08-06 15:16 | MORECARE ---
CASE MANAGEMENT DISCHARGE SUMMARY PATIENT: CHRISTI JOY UNIT: [id number] ADM DATE: 07/22/18 AGE: 62 : 59 SEX: M ROOM/BED: D.2234 AUTHOR: KOLTONDOC PHYSICIAN: REFERRING PHYSICIAN: ROSHNI PINEDA MD DATE OF SERVICE: 08/06/18 Discharge Plan Patient Name: CHRISTI JOY Facility: [facility]:[place] : 1955 Planned Disposition: Anticipated Discharge Date: Discharge Date: Expected LOS: Initial Reviewer: [email or web address] Initial Review Date: 07/22/2018 Generated: 08/06/18 4:16 pm Comments DCP- Discharge Planning Updated by [id number]: Jannet Bran on 08/06/18 2:[address] Patient is unable to do his own dressing. He again tells me that he does not have anyone at home that home health can teach. I informed him that home health will not see him without a teachable patient care assistant. I informed him that he could come to outpatient's at [facility] for dressing changes, he states he cannot drive here every day. He states he will go to Dr. Rios's office and they will change it for him. I informed him that they are not open daily for wound care. He refuses to go to a rehab. He states he is going home today. His portable oxygen is in the room. He was given the number to [facility] to call them when he gets to [place] to set up his home oxygen. He will take a taxi home approved by Karin Robbins last week. He states he will go to Dr. Rios's office tomorrow. DCP- Discharge Planning Updated by [email or web address]: Jannet Sotomayor on 08/06/18 11:[address] I CALLED AND SPOKE TO HUYEN ON MED SURG AT [facility]. HUYEN STATES THAT THEIR OUTPATIENT THERE DOES NOT DO DRESSING CHANGES, ONLY IV INFUSIONS. SHE STATES TO CALL DR OLVERA OFFICE FOR WOUND CARE. I CALLED DR BUSTAMANTE'S OFFICE AND SPOKE WITH EDWIGE, THEY ONLY SEE WEEKLY WITH A REFERRAL. I CALLED LINDA VARELA, KAILA AND JEANINE AND THEY WILL NOT SEE THE PATIENT WITHOUT A TEACHABLE SINGING TELEGRAM PERFORMER. I CALLED AND SPOKE TO CHANA AT [facility] AND SHE STATES IF THE PATIENT CAN BE TAUGHT THEY MAY BE ABLE TO SEE HIM TO REINFORCE TEACHING. I SPOKE WITH HIS PRIMARY NURSE, SHIRA, AND SHE STATES THAT SHE WILL TEACH THE PATIENT WITH HIS DRESSING CHANGE TODAY. KAYA WITH [facility] WILL DELIVER PORTABLE OXYGEN TODAY. CM WILL CONTINUE TO FOLLOW AND ASSIST WITH DISCHARGE PLANNING/NEEDS. DCP- Discharge Planning Updated by [email or web address]: Jannet Sotomayor on 08/06/18 9:[address] I have faxed the walk test with ABG report to [facility] and spoke with Scott. I have called Dr. Rios's office and left a message with Samara to have doctor Rios send a referral to the [place] [facility] to have his dressing changed daily with NS wet to dry dressings. 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 [facility] bus will not transport him. CM will continue to follow and assist with discharge planning/needs. DCP- Discharge Planning Updated by [id number]: Nilsa Fonseca on 08/04/18 4:[address] PATIENT HAS NASAL O2 AT 3/L. HE WILL NEED ABG'S DRAWN TO QUALIFY FOR OXYGEN W/ MEDICAID HIS INSURER. AWAIT APPROVAL FOR WOUND CARE AT WALK IN CLINIC IN [place]. PCP REFERRAL FROM DR RIOS MUST BE RECEIVED. MD NOT AVAILABLE UNTIL SUNDAY. DCP- Discharge Planning Updated by [id number]: Jannet Sotomayor on 08/02/18 2:[address] I called [facility] transportation and they will not be able to transport the patient to [place] because he does not have an appropriate Medicaid number yet to bill. She states that they would have to wait until the patient had his number to be able to look him up and bill for transportation. I called Taxi and it would be 200 dollars to transport home. Karin has approved this in case management. CM will continue to follow and assist with discharge planning/needs. DCP- Discharge Planning Updated by [id number]: Jannet Sotomayor on 08/02/18 2:[address] I tried to call Dr. Rios's office today, they are closed. I called [facility] walk in clinic and spoke with the nurse there, she states that they would have to have a referral from Dr. Rios to see him in the walk in clinic for dressing changes daily. I will call Dr. Rios's office on Sunday to see if I can get them to set up this referral. CM will continue to follow and assist with discharge planning/needs. Dr. Rios's office: [phone] (nurse is Samara) [facility] walk in clinic P:[phone] F: [phone] DCP- Discharge Planning Updated by [id number]: Jannet Sotomayor on 08/01/18 7:[address] Patient does not have benefits for LTACH. I have offered Inpatient rehab, he refuses, states he is "going home". CM will continue to follow and assist with discharge planning/needs. DCP- Discharge Planning Updated by [email or web address]: Jannet Sotomayor on 07/31/18 3:[address] I spoke with Alma Delia with [facility] in [place]. Patient states he does not have a teachable patient care assistant at home. He states he does not have a friend or relative that can assist with dressing changes. His nurse does not think that the patient is able to do his dressing change because of location. Alma Delia with [facility] states they cannot accept the patient. I called [facility] [place] and spoke with Daria and she also states that they cannot do his dressing without a teachable patient care assistant. He does have Medicaid approved per [place] in [facility]. I spoke with the patient about going to inpatient rehab either here or at [place] and he refuses. He states he is going home. I informed him that I could not get a home health service to see him daily for his dressing changes. I called Dr. Rios's office and spoke to Samara (his nurse). She is going to see if they can assist with finding home health daily for this patient. CM will continue to follow and assist with discharge planning/needs. DCP- Discharge Planning Updated by [id number]: Jannet Sotomayor on 07/26/18 1:[address] Met with patient about [facility], [facility] for [facility] in [place] signed. I called and spoke to Chana, she states they can take Medicaid pending if he has seen his PCP recently. I informed her his PCP was Dr. Rios. He states he has seen him recently "when this all started." He will need transportation home as well. He may possibly need oxygen. I will have a walk test done 2 days prior to discharge. CM will continue to follow and assist with discharge planning/needs. DCP- Discharge Planning Updated by [email or web address]: Denise Saldivar on 07/25/18 10:[address] SPOKE WITH OLEG IN [place].HE HAS MEDICAID PENDING DCP- Discharge Planning Updated by [id number]: Denise Saldivar on 07/24/18 6:[address] Patient Name: CHRISTI JOY Admission Status: ER Accout number: [id number] Admission Date: 07-22-2018 : 1955 Admission Diagnosis: Attending: JEFFY PINEDA Current LOS: 2 Anticipated DC Date: Planned Disposition: Primary Insurance: MEDICAID [place] PENDING CM met with patient at bedside about discharge planning /needs. Patient states he lives alone. Patient states he plans to discharge to his home. States he doesn't know how he is going to get home since his vehicle is at [facility]. He states he doesn't have anyone to help him. He states he has been trying for years to get his disability d/t his RA but hasn't received it and doesn't have any insurance. CM will contact [employer]. Patient states he doesn't have any medical equipment or home health services presently. States he feels his home environment is safe. Patient will most likely need HH when discharged for wound care. CM will continue to follow and assist as needed with discharge planning / needs. Discharge Planning Comments: Chuck Wagon Driver: Denise ANNE - Discharge Planning Initial Assessment Updated by [email or web address]: Denise Saldivar on 07/24/18 7:01 pm * Is the patient Alert and Oriented? Yes * How many steps to enter\\exit or inside your home? * PCP DR. Sapna RIOS * Pharmacy [facility] * Preadmission Environment Home Alone * ADLs Independent * Equipment None * List name and contact numbers for known caregivers / representatives who currently or will assist patient after discharge: HAS NO ONE PER PT * Verbal permission to speak to the caregivers and representatives has been obtained from the patient. N/A * Community resources currently utilized None * Additional services required to return to the preadmission environment? No * Can the patient safely return to the preadmission environment? Yes * Has this patient been hospitalized within the prior 30 days at any hospital? No Coverage Notice Reviewer: [id number] Keena Sotomayor Notice Issued Date-Time: 07/26/2018 14:11 Notice Type: Patient Choice Letter Notice Delivered To: Patient Relationship to Patient: Self [employer] Certified Network Professional Name: Delivery Method: HAND - Hand Delivered Felipa Days: Prior Verbal Notification: Recipient Understood Notice: Yes Recipient Signature: Yes Med Rec Note Co-signed by Attending: Coverage Notice Comment: [facility] for [facility] in [facility] [place] Last DP export: 08/06/18 11:52 a Patient Name: CHRISTI JOY Page [id number] at 1516 All edits/amendments must be made on the electronic document DICTATION DATE: 08/06/181515 STORM CHASER: MELISSA 08/06/18 1516 RPT#: [id number] DC DATE: STATUS: ADM IN [facility] [address] [place] [address] END OF REPORT
--- NOTE | 2018-08-06 15:24 | MORECARE ---
CASE MANAGEMENT DISCHARGE SUMMARY PATIENT: CHRISTI JOY UNIT: [id number] ADM DATE: 07/22/18 AGE: 62 : 59 SEX: M ROOM/BED: D.2234 AUTHOR: KOLTONDOC PHYSICIAN: REFERRING PHYSICIAN: ROSHNI PINEDA MD DATE OF SERVICE: 08/06/18 Discharge Plan Patient Name: CHRISTI JOY Facility: [facility]:[place] : 1955 Planned Disposition: Anticipated Discharge Date: Discharge Date: Expected LOS: Initial Reviewer: [email or web address] Initial Review Date: 07/22/2018 Generated: 08/06/18 4:24 pm Comments DCP- Discharge Planning Updated by [id number]: Jannet Bran on 08/06/18 2:[address] Patient is unable to do his own dressing. He again tells me that he does not have anyone at home that home health can teach. I informed him that home health will not see him without a teachable healthcare administrative assistant. I informed him that he could come to outpatient's at [facility] for dressing changes, he states he cannot drive here every day. He states he will go to Dr. Rios's office and they will change it for him. I informed him that they are not open daily for wound care. He refuses to go to a rehab. He states he is going home today. His portable oxygen is in the room. He was given the number to [facility] to call them when he gets to [place] to set up his home oxygen. He will take a taxi home approved by Karin Robbins last week. He states he will go to Dr. Rios's office tomorrow. DCP- Discharge Planning Updated by [id number]: Jannet Sotomayor on 08/06/18 11:[address] I CALLED AND SPOKE TO HUYEN ON MED SURG AT [facility]. HUYEN STATES THAT THEIR OUTPATIENT THERE DOES NOT DO DRESSING CHANGES, ONLY IV INFUSIONS. SHE STATES TO CALL DR OLVERA OFFICE FOR WOUND CARE. I CALLED DR BUSTAMANTE'S OFFICE AND SPOKE WITH EDWIGE, THEY ONLY SEE WEEKLY WITH A REFERRAL. I CALLED LINDA VARELA, KAILA AND JEANINE AND THEY WILL NOT SEE THE PATIENT WITHOUT A TEACHABLE CUT OUT MACHINE OPERATOR. I CALLED AND SPOKE TO CHANA AT [facility] AND SHE STATES IF THE PATIENT CAN BE TAUGHT THEY MAY BE ABLE TO SEE HIM TO REINFORCE TEACHING. I SPOKE WITH HIS PRIMARY NURSE, SHIRA, AND SHE STATES THAT SHE WILL TEACH THE PATIENT WITH HIS DRESSING CHANGE TODAY. KAYA WITH [facility] WILL DELIVER PORTABLE OXYGEN TODAY. CM WILL CONTINUE TO FOLLOW AND ASSIST WITH DISCHARGE PLANNING/NEEDS. DCP- Discharge Planning Updated by [id number]: Jannet Sotomayor on 08/06/18 9:[address] I have faxed the walk test with ABG report to [facility] and spoke with Scott. I have called Dr. Rios's office and left a message with Samara to have doctor Rios send a referral to the [place] [facility] to have his dressing changed daily with NS wet to dry dressings. 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 The [facility] bus will not transport him. CM will continue to follow and assist with discharge planning/needs. DCP- Discharge Planning Updated by [id number]: Nilsa Fonseca on 08/04/18 4:[address] PATIENT HAS NASAL O2 AT 3/L. HE WILL NEED ABG'S DRAWN TO QUALIFY FOR OXYGEN W/ MEDICAID HIS INSURER. AWAIT APPROVAL FOR WOUND CARE AT WALK IN CLINIC IN [place]. PCP REFERRAL FROM DR RIOS MUST BE RECEIVED. MD NOT AVAILABLE UNTIL SUNDAY. DCP- Discharge Planning Updated by [id number]: Jannet Sotomayor on 08/02/18 2:[address] I called [facility] transportation and they will not be able to transport the patient to [place] because he does not have an appropriate Medicaid number yet to bill. She states that they would have to wait until the patient had his number to be able to look him up and bill for transportation. I called Taxi and it would be 200 dollars to transport home. Karin has approved this in case management. CM will continue to follow and assist with discharge planning/needs. DCP- Discharge Planning Updated by [id number]: Jannet Sotomayor on 08/02/18 2:[address] I tried to call Dr. Rios's office today, they are closed. I called [facility] walk in clinic and spoke with the nurse there, she states that they would have to have a referral from Dr. Rios to see him in the walk in clinic for dressing changes daily. I will call Dr. Rios's office on Sunday to see if I can get them to set up this referral. CM will continue to follow and assist with discharge planning/needs. Dr. Rios's office: [phone] (nurse is Samara) [facility] walk in clinic P:[phone] F: [phone] DCP- Discharge Planning Updated by [id number]: Jannet Sotomayor on 08/01/18 7:[address] Patient does not have benefits for LTACH. I have offered Inpatient rehab, he refuses, states he is "going home". CM will continue to follow and assist with discharge planning/needs. DCP- Discharge Planning Updated by [email or web address]: Jannet Sotomayor on 07/31/18 3:[address] I spoke with Alma Delia with [facility] in [place]. Patient states he does not have a teachable healthcare administrative assistant at home. He states he does not have a friend or relative that can assist with dressing changes. His nurse does not think that the patient is able to do his dressing change because of location. Alma Delia with [facility] states they cannot accept the patient. I called [facility] and spoke with Daria and she also states that they cannot do his dressing without a teachable healthcare administrative assistant. He does have Medicaid approved per [place] in [facility]. I spoke with the patient about going to inpatient rehab either here or at [place] and he refuses. He states he is going home. I informed him that I could not get a home health service to see him daily for his dressing changes. I called Dr. Rios's office and spoke to Samara (his nurse). She is going to see if they can assist with finding home health daily for this patient. CM will continue to follow and assist with discharge planning/needs. DCP- Discharge Planning Updated by [id number]: Jannet Sotomayor on 07/26/18 1:[address] Met with patient about [facility], [facility] for [facility] in [place] signed. I called and spoke to Chana, she states they can take Medicaid pending if he has seen his PCP recently. I informed her his PCP was Dr. Rios. He states he has seen him recently "when this all started." He will need transportation home as well. He may possibly need oxygen. I will have a walk test done 2 days prior to discharge. CM will continue to follow and assist with discharge planning/needs. DCP- Discharge Planning Updated by [id number]: Denise Saldivar on 07/25/18 10:[address] SPOKE WITH [facility] IN [place].HE HAS MEDICAID PENDING DCP- Discharge Planning Updated by [email or web address]: Denise Saldivar on 07/24/18 6:[address] Patient Name: CHRISTI JOY Admission Status: ER Accout number: [id number] Admission Date: 07-22-2018 : 1955 Admission Diagnosis: Attending: JEFFY PINEDA Current LOS: 2 Anticipated DC Date: Planned Disposition: Primary Insurance: MEDICAID [place] PEND[place] CM met with patient at bedside about discharge planning /needs. Patient states he lives alone. Patient states he plans to discharge to his home. States he doesn't know how he is going to get home since his vehicle is at [facility]. He states he doesn't have anyone to help him. He states he has been trying for years to get his disability d/t his RA but hasn't received it and doesn't have any insurance. CM will contact [employer]. Patient states he doesn't have any medical equipment or home health services presently. States he feels his home environment is safe. Patient will most likely need HH when discharged for wound care. CM will continue to follow and assist as needed with discharge planning / needs. Discharge Planning Comments: Blueprint Reproducer: Denise ANNE - Discharge Planning Initial Assessment Updated by [email or web address]: Denise Saldivar on 07/24/18 7:01 pm * Is the patient Alert and Oriented? Yes * How many steps to enter\\exit or inside your home? * PCP DR. Sapna RIOS * Pharmacy [facility] * Preadmission Environment Home Alone * ADLs Independent * Equipment None * List name and contact numbers for known caregivers / representatives who currently or will assist patient after discharge: HAS NO ONE PER PT * Verbal permission to speak to the caregivers and representatives has been obtained from the patient. N/A * Community resources currently utilized None * Additional services required to return to the preadmission environment? No * Can the patient safely return to the preadmission environment? Yes * Has this patient been hospitalized within the prior 30 days at any hospital? No External Providers External Provider: OTHER-OTHER Next Contact Date: Service Request Date: Service Type: Resolution: Reviewer: Comments: Coverage Notice Reviewer: [id number] - Jannet Sotomayor Notice Issued Date-Time: 07/26/2018 14:11 Notice Type: Patient Choice Letter Notice Delivered To: Patient Relationship to Patient: Self Machine Tech Name: Delivery Method: HAND - Hand Delivered Felipa Days: Prior Verbal Notification: Recipient Understood Notice: Yes Recipient Signature: Yes Med Rec Note Co-signed by Attending: Coverage Notice Comment: SAMIR for [facility] in [facility] Last DP export: 08/06/18 2:16 p Patient Name: CHRISTI JOY Page [phone] at 1524 All edits/amendments must be made on the electronic document DICTATION DATE: 08/06/181523 ENVELOPE MACHINE ADJUSTER: MELISSA 08/06/18 152 RPT#: [id number] DC DATE: STATUS: ADM IN [facility] [address] [place] [address] END OF REPORT
--- NOTE | 2018-08-06 15:24 | NUR ---
DISCUSSED DISCHARGE, MEDICATION AND FOLLOW-UP INSTRUCTIONS WITH PATIENT. GATHERED BELONGINGS. PATIENT DISCHARGING HOME BY TAXI TO [facility]. FLORAL DECORATOR CALLED TO SAY THEY ARE OUTSIDE. VOLUNTEER STAFF MEMBER TOOK PATIENT OUT VIA WHEELCHAIR. PATIENT WEARING HOME 02 UPON DISCHARGE. PATIENT TOOK ALL BELONGINGS.
--- NOTE | 2018-08-06 15:42 | MORECARE ---
CASE MANAGEMENT DISCHARGE SUMMARY PATIENT: CHRISTI JOY UNIT: [id number] ADM DATE: 07/22/18 AGE: 62 : 59 SEX: M ROOM/BED: D.2234 AUTHOR: KOLTONDOC PHYSICIAN: REFERRING PHYSICIAN: ROSHNI PINEDA MD DATE OF SERVICE: 08/06/18 Discharge Plan Patient Name: CHRISTI JOY Facility: [facility]:[place] : 1955 Planned Disposition: Anticipated Discharge Date: Discharge Date: 08/06/2018 Expected LOS: Initial Reviewer: [id number] Initial Review Date: 07/22/2018 Generated: 08/06/18 4:41 pm Comments DCP- Discharge Planning Updated by [id number]: Jannet Sotomayor on 08/06/18 2:[address] I HAVE REFERRED TO WOUND CARE CLINIC IN [place] AND FAXED CLINICAL. THEY WILL CALL FOR AN APPOINTMENT. THE PATIENT STATES HE IS NOT GOING TO A REHAB OR CLOTH SHRINKING MACHINE OPERATOR HELPER FACILITY. STATES HE IS GOING HOME TODAY. HE STATES HE WILL SEE DR RIOS IN THE MORNING FOR HIS DRESSING CHANGE AND WILL GO TO THE ER IF NEEDED ON THE WEEKENDS. HE REFUSES TO STAY AT THE HOSPITAL. HE DOES NOT WANT ME TO CALL A PRIVATE DUTY AGENCY. I HAVE HIM A LIST OF PRIVATE DUTY PEOPLE THAT MAY BE ABLE TO ASSIST HIM. HE STATES WHEN HE FINDS SOMEONE TO HELP WITH DRESSING CARE HE WILL LET DR RIOS KNOW TO ORDER HOME HEALTH. CLEMENTE METCALF INFORMED THAT HE WILL NOT HAVE HOME HEALTH BECAUSE HE DOES NOT HAVE A TEACHABLE LABOR GANG SUPERVISOR. PATIENT REFUSES TO STAY AT THE HOSPITAL ANY MORE AND REFUSES TO RETURN TO OUTPATIENT'S EVERY DAY FOR DRESSING CHANGE. DISCHARGING HOME WITH HOME OXYGEN. HE IS TO CALL [facility] ON ARRIVAL TO [place] AND HE HAS THEIR NUMBER. DCP- Discharge Planning Updated by [id number]: Jannet Sotomayor on 08/06/18 2:[address] Patient is unable to do his own dressing. He again tells me that he does not have anyone at home that home health can teach. I informed him that home health will not see him without a teachable personal care home administrator. I informed him that he could come to outpatient's at [facility] for dressing changes, he states he cannot drive here every day. He states he will go to Dr. Rios's office and they will change it for him. I informed him that they are not open daily for wound care. He refuses to go to a rehab. He states he is going home today. His portable oxygen is in the room. He was given the number to [facility] to call them when he gets to [place] to set up his home oxygen. He will take a taxi home approved by Karin Robbins last week. He states he will go to Dr. Rios's office tomorrow. DCP- Discharge Planning Updated by [id number]: Jannet Sotomayor on 08/06/18 11:[address] I CALLED AND SPOKE TO HUYEN ON MED SURG AT [facility]. HUYEN STATES THAT THEIR OUTPATIENT THERE DOES NOT DO DRESSING CHANGES, ONLY IV INFUSIONS. SHE STATES TO CALL DR OLVERA OFFICE FOR WOUND CARE. I CALLED DR BUSTAMANTE'S OFFICE AND SPOKE WITH EDWIGE, THEY ONLY SEE WEEKLY WITH A REFERRAL. I CALLED [facility]EL[facility], [facility] AND [facility] AND THEY WILL NOT SEE THE PATIENT WITHOUT A TEACHABLE LABOR GANG SUPERVISOR. I CALLED AND SPOKE TO CHANA AT [facility] AND SHE STATES IF THE PATIENT CAN BE TAUGHT THEY MAY BE ABLE TO SEE HIM TO REINFORCE TEACHING. I SPOKE WITH HIS PRIMARY NURSE, SHIRA, AND SHE STATES THAT SHE WILL TEACH THE PATIENT WITH HIS DRESSING CHANGE TODAY. KAYA WITH [facility] WILL DELIVER PORTABLE OXYGEN TODAY. CM WILL CONTINUE TO FOLLOW AND ASSIST WITH DISCHARGE PLANNING/NEEDS. DCP- Discharge Planning Updated by [id number]: Jannet Sotomayor on 08/06/18 9:[address] I have faxed the walk test with ABG report to [facility] and spoke with Scott. I have called Dr. Rios's office and left a message with Samara to have doctor Blanca send a referral to the [place] [facility] to have his dressing changed daily with NS wet to dry dressings. 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 The [facility] bus will not transport him. CM will continue to follow and assist with discharge planning/needs. DCP- Discharge Planning Updated by [id number]: Nilsa Fonseca on 08/04/18 4:[address] PATIENT HAS NASAL O2 AT 3/L. HE WILL NEED ABG'S DRAWN TO QUALIFY FOR OXYGEN W/ MEDICAID HIS INSURER. AWAIT APPROVAL FOR WOUND CARE AT WALK IN CLINIC IN [place]. PCP REFERRAL FROM DR RIOS MUST BE RECEIVED. MD NOT AVAILABLE UNTIL SUNDAY. DCP- Discharge Planning Updated by [id number]: Jannet Sotomayor on 08/02/18 2:[address] I called [facility] and they will not be able to transport the patient to [place] because he does not have an appropriate Medicaid number yet to bill. She states that they would have to wait until the patient had his number to be able to look him up and bill for transportation. I called Taxi and it would be 200 dollars to transport home. Karin has approved this in case management. CM will continue to follow and assist with discharge planning/needs. DCP- Discharge Planning Updated by [id number]: Jannet Sotomayor on 08/02/18 2:[address] I tried to call Dr. Rios's office today, they are closed. I called [facility] walk in clinic and spoke with the nurse there, she states that they would have to have a referral from Dr. Rios to see him in the walk in clinic for dressing changes daily. I will call Dr. Rios's office on Sunday to see if I can get them to set up this referral. CM will continue to follow and assist with discharge planning/needs. Dr. Rios's office: [phone] (nurse is Samara) [facility] walk in clinic P:[phone] F: [phone] DCP- Discharge Planning Updated by [id number]: Jannet Sotomayor on 08/01/18 7:[address] Patient does not have benefits for LTACH. I have offered Inpatient rehab, he refuses, states he is "going home". CM will continue to follow and assist with discharge planning/needs. DCP- Discharge Planning Updated by [id number]: Jannet Sotomayor on 07/31/18 3:[address] I spoke with Alma Delia with [facility] in [place]. Patient states he does not have a teachable personal care home administrator at home. He states he does not have a friend or relative that can assist with dressing changes. His nurse does not think that the patient is able to do his dressing change because of location. Alma Delia with [facility] states they cannot accept the patient. I called [facility] in [place] and spoke with Daria and she also states that they cannot do his dressing without a teachable personal care home administrator. He does have Medicaid approved per Bentley in [facility] Data. I spoke with the patient about going to inpatient rehab either here or at [place] and he refuses. He states he is going home. I informed him that I could not get a home health service to see him daily for his dressing changes. I called Dr. Rios's office and spoke to Samara (his nurse). She is going to see if they can assist with finding home health daily for this patient. CM will continue to follow and assist with discharge planning/needs. DCP- Discharge Planning Updated by [id number]: Jannet Sotomayor on 07/26/18 1:[address] Met with patient about [facility], [facility] for [facility] in [place] signed. I called and spoke to Chana, she states they can take Medicaid pending if he has seen his PCP recently. I informed her his PCP was Dr. Rios. He states he has seen him recently "when this all started." He will need transportation home as well. He may possibly need oxygen. I will have a walk test done 2 days prior to discharge. CM will continue to follow and assist with discharge planning/needs. DCP- Discharge Planning Updated by [id number]: Denise Saldivar on 07/25/18 10:[address] SPOKE WITH [facility]G IN [place]-[employer] -.HE HAS MEDICAID PENDING DCP- Discharge Planning Updated by [id number]: Denise Saldivar on 07/24/18 6:[address] Patient Name: CHRISTI JOY Admission Status: ER Accout number: [id number] Admission Date: 07-22-2018 : 1955 Admission Diagnosis: Attending: JEFFY PINEDA Current LOS: 2 Anticipated DC Date: Planned Disposition: Primary Insurance: MEDICAID [place] PEND[place] CM met with patient at bedside about discharge planning /needs. Patient states he lives alone. Patient states he plans to discharge to his home. States he doesn't know how he is going to get home since his vehicle is at [facility]. He states he doesn't have anyone to help him. He states he has been trying for years to get his disability d/t his RA but hasn't received it and doesn't have any insurance. CM will contact [facility]. Patient states he doesn't have any medical equipment or home health services presently. States he feels his home environment is safe. Patient will most likely need HH when discharged for wound care. CM will continue to follow and assist as needed with discharge planning / needs. Discharge Planning Comments: Tire Fabric Impregnating Range Tender: Denise ANNE - Discharge Planning Initial Assessment Updated by [id number]: Denise Saldivar on 07/24/18 7:01 pm * Is the patient Alert and Oriented? Yes * How many steps to enter\\exit or inside your home? * PCP DR. Sapna RIOS * Pharmacy [facility] * Preadmission Environment Home Alone * ADLs Independent * Equipment None * List name and contact numbers for known caregivers / representatives who currently or will assist patient after discharge: HAS NO ONE PER PT * Verbal permission to speak to the caregivers and representatives has been obtained from the patient. N/A * Community resources currently utilized None * Additional services required to return to the preadmission environment? No * Can the patient safely return to the preadmission environment? Yes * Has this patient been hospitalized within the prior 30 days at any hospital? No Coverage Notice Reviewer: [id number] Keena Sotomayor Notice Issued Date-Time: 07/26/2018 14:11 Notice Type: Patient Choice Letter Notice Delivered To: Patient Relationship to Patient: Self Paid Search Specialist Name: Delivery Method: HAND - Hand Delivered Felipa Days: Prior Verbal Notification: Recipient Understood Notice: Yes Recipient Signature: Yes Med Rec Note Co-signed by Attending: Coverage Notice Comment: [facility] for [facility] in [facility] Last DP export: 08/06/18 2:24 p Patient Name: CHRISTI JOY Page [id number] at 1542 All edits/amendments must be made on the electronic document DICTATION DATE: 08/06/18 154 [place]ON HELPER: MELISSA 08/06/18 1541 RPT#: [id number] DC DATE:08/06/18 STATUS: DIS IN [facility] [address] [place] [address] END OF REPORT
--- NOTE | 2018-08-09 10:21 | MORECARE ---
CASE MANAGEMENT DISCHARGE SUMMARY PATIENT: CHRISTI JOY UNIT: [id number] ADM DATE: 07/22/18 AGE: 62 : 59 SEX: M ROOM/BED: D.2234 AUTHOR: KOLTONDOC PHYSICIAN: REFERRING PHYSICIAN: ROSHNI PINEDA MD DATE OF SERVICE: 08/09/18 Discharge Plan Patient Name: CHRISTI JOY Facility: [facility]:[place] : 1955 Planned Disposition: Anticipated Discharge Date: Discharge Date: 08/06/2018 Expected LOS: 0 Initial Reviewer: [id number] Initial Review Date: 07/22/2018 Generated: 08/09/18 11:20 am DCP- Discharge Planning Updated by [id number]: Jannet Sotomayor on 08/06/18 2:[address] I HAVE REFERRED TO WOUND CARE CLINIC IN [place] AND FAXED CLINICAL. THEY WILL CALL FOR AN APPOINTMENT. THE PATIENT STATES HE IS NOT GOING TO A REHAB OR CARDIAC SPECIALIST FACILITY. STATES HE IS GOING HOME TODAY. HE STATES HE WILL SEE DR RIOS IN THE MORNING FOR HIS DRESSING CHANGE AND WILL GO TO THE ER IF NEEDED ON THE WEEKENDS. HE REFUSES TO STAY AT THE HOSPITAL. HE DOES NOT WANT ME TO CALL A PRIVATE DUTY AGENCY. I HAVE HIM A LIST OF PRIVATE DUTY PEOPLE THAT MAY BE ABLE TO ASSIST HIM. HE STATES WHEN HE FINDS SOMEONE TO HELP WITH DRESSING CARE HE WILL LET DR RIOS KNOW TO ORDER HOME HEALTH. CLEMENTE METCALF INFORMED THAT HE WILL NOT HAVE HOME HEALTH BECAUSE HE DOES NOT HAVE A TEACHABLE KITCHEN BATH DESIGNER. PATIENT REFUSES TO STAY AT THE HOSPITAL ANY MORE AND REFUSES TO RETURN TO OUTPATIENT'S EVERY DAY FOR DRESSING CHANGE. DISCHARGING HOME WITH HOME OXYGEN. HE IS TO CALL [facility] ON ARRIVAL TO [place] AND HE HAS THEIR NUMBER. DCP- Discharge Planning Updated by [id number]: Jannet Sotomayor on 08/06/18 2:[address] Patient is unable to do his own dressing. He again tells me that he does not have anyone at home that home health can teach. I informed him that home health will not see him without a teachable nurse behavioral health care. I informed him that he could come to outpatient's at [facility] for dressing changes, he states he cannot drive here every day. He states he will go to Dr. Rios's office and they will change it for him. I informed him that they are not open daily for wound care. He refuses to go to a rehab. He states he is going home today. His portable oxygen is in the room. He was given the number to [facility] to call them when he gets to [place] to set up his home oxygen. He will take a taxi home approved by Karin Robbins last week. He states he will go to Dr. Rios's office tomorrow. DCP- Discharge Planning Updated by [id number]: Jannet Sotomayor on 08/06/18 11:[address] I CALLED AND SPOKE TO HUYEN ON MED SURG AT [facility]. HUYEN STATES THAT THEIR OUTPATIENT THERE DOES NOT DO DRESSING CHANGES, ONLY IV INFUSIONS. SHE STATES TO CALL DR OLVERA OFFICE FOR WOUND CARE. I CALLED DR BUSTAMANTE'S OFFICE AND SPOKE WITH EDWIGE, THEY ONLY SEE WEEKLY WITH A REFERRAL. I CALLED [facility] VAR[facility], [facility]AILA AND [facility] AND THEY WILL NOT SEE THE PATIENT WITHOUT A TEACHABLE KITCHEN BATH DESIGNER. I CALLED AND SPOKE TO CHANA AT [facility] AND SHE STATES IF THE PATIENT CAN BE TAUGHT THEY MAY BE ABLE TO SEE HIM TO REINFORCE TEACHING. I SPOKE WITH HIS PRIMARY NURSE, SHIRA, AND SHE STATES THAT SHE WILL TEACH THE PATIENT WITH HIS DRESSING CHANGE TODAY. KAYA WITH [facility] WILL DELIVER PORTABLE OXYGEN TODAY. CM WILL CONTINUE TO FOLLOW AND ASSIST WITH DISCHARGE PLANNING/NEEDS. DCP- Discharge Planning Updated by [id number]: Jannet Sotomayor on 08/06/18 9:[address] I have faxed the walk test with ABG report to [facility] and spoke with Scott. I have called Dr. Rios's office and left a message with Samara to have doctor Blanca send a referral to the [place] [facility] to have his dressing changed daily with NS wet to dry dressings. 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 The [facility] bus will not transport him. CM will continue to follow and assist with discharge planning/needs. DCP- Discharge Planning Updated by [id number]: Nilsa Fonseca on 08/04/18 4:[address] PATIENT HAS NASAL O2 AT 3/L. HE WILL NEED ABG'S DRAWN TO QUALIFY FOR OXYGEN W/ MEDICAID HIS INSURER. AWAIT APPROVAL FOR WOUND CARE AT WALK IN CLINIC IN [place]. PCP REFERRAL FROM DR RIOS MUST BE RECEIVED. MD NOT AVAILABLE UNTIL SUNDAY. DCP- Discharge Planning Updated by [id number]: Jannet Sotomayor on 08/02/18 2:[address] I called [facility] and they will not be able to transport the patient to [place] because he does not have an appropriate Medicaid number yet to bill. She states that they would have to wait until the patient had his number to be able to look him up and bill for transportation. I called Taxi and it would be 200 dollars to transport home. Karin has approved this in case management. CM will continue to follow and assist with discharge planning/needs. DCP- Discharge Planning Updated by [id number]: Jannet Sotomayor on 08/02/18 2:[address] I tried to call Dr. Rios's office today, they are closed. I called [facility] walk in clinic and spoke with the nurse there, she states that they would have to have a referral from Dr. Rios to see him in the walk in clinic for dressing changes daily. I will call Dr. iRos's office on Sunday to see if I can get them to set up this referral. CM will continue to follow and assist with discharge planning/needs. Dr. Rios's office: [phone] (nurse is Samara) [facility] walk in clinic P:[phone] F: [phone] DCP- Discharge Planning Updated by [id number]: Jannet Sotomayor on 08/01/18 7:[address] Patient does not have benefits for LTACH. I have offered Inpatient rehab, he refuses, states he is "going home". CM will continue to follow and assist with discharge planning/needs. DCP- Discharge Planning Updated by [id number]: Jannet Sotomayor on 07/31/18 3:[address] I spoke with Alma Delia with [facility] in [place]. Patient states he does not have a teachable nurse behavioral health care at home. He states he does not have a friend or relative that can assist with dressing changes. His nurse does not think that the patient is able to do his dressing change because of location. Alma Delia with [facility] states they cannot accept the patient. I called [facility] in [place] and spoke with Daria and she also states that they cannot do his dressing without a teachable nurse behavioral health care. He does have Medicaid approved per Bentley in [facility] Data. I spoke with the patient about going to inpatient rehab either here or at [place] and he refuses. He states he is going home. I informed him that I could not get a home health service to see him daily for his dressing changes. I called Dr. Rios's office and spoke to Samara (his nurse). She is going to see if they can assist with finding home health daily for this patient. CM will continue to follow and assist with discharge planning/needs. DCP- Discharge Planning Updated by [id number]: Jannet Sotomayor on 07/26/18 1:[address] Met with patient about [facility], [facility] for [facility] in [place] signed. I called and spoke to Chana, she states they can take Medicaid pending if he has seen his PCP recently. I informed her his PCP was Dr. Rios. He states he has seen him recently "when this all started." He will need transportation home as well. He may possibly need oxygen. I will have a walk test done 2 days prior to discharge. CM will continue to follow and assist with discharge planning/needs. DCP- Discharge Planning Updated by [id number]: Denise Saldivar on 07/25/18 10:[address] SPOKE WITH OLEG IN [place]-[employer] -.HE HAS MEDICAID PENDING DCP- Discharge Planning Updated by [id number]: Denise Saldivar on 07/24/18 6:[address] Patient Name: CHRISTI JOY Admission Status: ER Accout number: [id number] Admission Date: 07-22-2018 : 1955 Admission Diagnosis: Attending: JEFFY PINEDA Current LOS: 2 Anticipated DC Date: Planned Disposition: Primary Insurance: MEDICAID [place] PENDING CM met with patient at bedside about discharge planning /needs. Patient states he lives alone. Patient states he plans to discharge to his home. States he doesn't know how he is going to get home since his vehicle is at [facility]. He states he doesn't have anyone to help him. He states he has been trying for years to get his disability d/t his RA but hasn't received it and doesn't have any insurance. [facility] Patient states he doesn't have any medical equipment or home health services presently. States he feels his home environment is safe. Patient will most likely need HH when discharged for wound care. CM will continue to follow and assist as needed with discharge planning / needs. Discharge Planning Comments: Synthetic Department Supervisor: Denise ANNE - Discharge Planning Initial Assessment Updated by [id number]: Denise Saldivar on 07/24/18 7:01 pm * Is the patient Alert and Oriented? Yes * How many steps to enter\\exit or inside your home? * PCP DR. Sapna RIOS * Pharmacy [facility] * Preadmission Environment Home Alone * ADLs Independent * Equipment None * List name and contact numbers for known caregivers / representatives who currently or will assist patient after discharge: HAS NO ONE PER PT * Verbal permission to speak to the caregivers and representatives has been obtained from the patient. N/A * Community resources currently utilized None * Additional services required to return to the preadmission environment? No * Can the patient safely return to the preadmission environment? Yes * Has this patient been hospitalized within the prior 30 days at any hospital? No Coverage Notice Reviewer: [id number] Keena Sotomayor Notice Issued Date-Time: 07/26/2018 14:11 Notice Type: Patient Choice Letter Notice Delivered To: Patient Relationship to Patient: Self Prop And Effects Designer Name: Delivery Method: HAND - Hand Delivered Felipa Days: Prior Verbal Notification: Recipient Understood Notice: Yes Recipient Signature: Yes Med Rec Note Co-signed by Attending: Coverage Notice Comment: [facility] for [facility] in [facility] Last DP export: 08/06/18 2:42 p Patient Name: CHRISTI JOY Page [id number] at 1021 All edits/amendments must be made on the electronic document DICTATION DATE: 08/09/18 1020 BORDER INSPECTOR: MELISSA 08/09/18 1020 RPT#: [id number] DC DATE:08/06/18 STATUS: DIS IN [facility] [address] [place] [address] END OF REPORT
== END 2018-08-06 15:33 | disposition home or self-care (01) | DRG 711 ==
LOC: D.ER 17:45 → D.ICU 21:49 → D.MS 21:49
PROVIDERS: Family Medicine; Internal Medicine Nephrology; Internal Medicine Pulmonary Disease; Radiology Diagnostic Radiology; Surgery; ADMIT Emergency Medicine; ATTEND Emergency Medicine
PROC: 0VT90ZZ Resection of Right Testis, Open Approach (ICD-10-PCS; 2018-07-22)
PROC: 0VBF0ZZ Excision of Right Spermatic Cord, Open Approach (ICD-10-PCS; 2018-07-22)
PROC: 0J9B0ZZ Drainage of Perineum Subcutaneous Tissue and Fascia, Open Approach (ICD-10-PCS; 2018-07-22)
PROC: 0JBB0ZZ Excision of Perineum Subcutaneous Tissue and Fascia, Open Approach (ICD-10-PCS; 2018-07-22)
PROC: 0VT Male Reproductive System, Resection (ICD-10-PCS; 2018-07-22)
PROC: 0HBAXZZ Excision of Inguinal Skin, External Approach (ICD-10-PCS; principal; 2018-07-22 20:37)
PROC: 0VSB0ZZ Reposition Left Testis, Open Approach (ICD-10-PCS; 2018-07-22 20:37)
PROC: 05HY33Z Insertion of Infusion Device into Upper Vein, Percutaneous Approach (ICD-10-PCS; 2018-07-23)
PROC: 0JBB0ZZ Excision of Perineum Subcutaneous Tissue and Fascia, Open Approach (ICD-10-PCS; 2018-07-24)
PROC: 0Y3 Anatomical Regions, Lower Extremities, Control (ICD-10-PCS; 2018-07-24)
PROC: 0W993ZZ Drainage of Right Pleural Cavity, Percutaneous Approach (ICD-10-PCS; 2018-07-30)
DX: N49.3 Fournier gangrene (principal); J96.01 Acute respiratory failure with hypoxia; R57.8 Other shock; J18.9 Pneumonia, unspecified organism; D62 Acute posthemorrhagic anemia; J90 Pleural effusion, not elsewhere classified; M06.9 Rheumatoid arthritis, unspecified; F17.200 Nicotine dependence, unspecified, uncomplicated; I95.81 Postprocedural hypotension; E83.42 Hypomagnesemia; E83.51 Hypocalcemia; I10 Essential (primary) hypertension; J43.9 Emphysema, unspecified; R60.1 Generalized edema; D64.9 Anemia, unspecified; E87.6 Hypokalemia